=== PATIENT | female | born 1990 | race Caucasian/White ===

== ENCOUNTER → 2019-01-29 08:34 | Outpatient (CLI) | payer OTHER, SELFPAY ==
[2019-01-29 08:16] VITALS: BMI 30.8
[2019-01-29 10:58] LABS: Absolute Lymphocyte Count 2.04 X10^3/ul (0.83-4.51); Absolute Neutrophil Count 3.3 X10^3/uL (2.0-7.7); Basophil# 0.04 X10^3/uL; Basophil% 0.7 % (0-1); Eosinophil# 0.13 X10^3/uL; Eosinophils% 2.1 % (0-5); Hematocrit 41.6 % (37-47); Hemoglobin 14.3 g/dl (12.0-15.0); Lymphocyte # 2.04 X10^3/ul (4.0); Lymphocyte % 33.7 % (19-41); Mean Corp Hgb Conc 34.4 g/gl (32-36); Mean Corpuscular Hgb 29.4 pg (27.0-32.0); Mean Corpuscular Volume 85.6 fL (81-99); Mean Platelet Vol. 9.5 fl (6.2-12.0); Monocyte# 0.56 X10^3/uL; Monocyte% 9.2 % (0-10); Neutrophil # 3.28 X10^3/uL (2.7-7.7); Neutrophil % 54.1 % (47-70); Platelet Count 283 K/mm3 (150-450); RBC Distribution Width CV 12.1 % (11.6-14.6); Red Blood Count 4.86 M/mm3 (4.2-5.4); White Blood Count 6.1 K/mm3 (4.4-11.0)
[2019-01-29 10:59] LABS: POSITIVE COUNT NO; POSITIVE DIFFERENTIAL NO; POSITIVE MORPHOLOGY NO
[2019-01-29 11:09] LABS: AST(SGOT) 17 U/L (15-37); Alanine Aminotransfer ALT/SGPT 25 U/L (13-56); Albumin, Serum 3.7 g/dL (3.2-5.0); Alkaline Phosphatase 67 U/L (45-117); Anion Gap 6 (5-15); BUN 14 mg/dL (7-18); BUN/Creat Ratio 14.6 RATIO (10-20); Calcium,Total 8.7 mg/dL (8.5-10.1); Chloride 107 mmol/L (98-107); Creatinine, Serum 0.96 mg/dL (0.55-1.02); EST Glomerular Filtration Rate 74 mL/min (>60); Est Glom Filt Rate - Afr Amer 89 mL/min (>60); Globulin 3.6 g/dL (2.2-4.2); Glucose 88 mg/dL (74-106); Potassium 4.4 mmol/L (3.5-5.1); Protein, Total 7.3 g/dL (6.4-8.2); Sodium Level 137 mmol/L (136-145)
== END ==
PROVIDERS: Family Provider Internal Medicine; PCP Internal Medicine; Visit Provider Internal Medicine
DX: J45.909 Unspecified asthma, uncomplicated (principal); F41.9 Anxiety disorder, unspecified
CPT/HCPCS: 36415; 80053; 85025

== ENCOUNTER 2020-06-03 16:15 | Outpatient (CLI) | payer OTHER, SELFPAY ==
[2020-03-18 08:23] VITALS: BMI 30.8
[2020-06-03] VITALS (7 sets, daily range): BP systolic 135–147; BP diastolic 74–85; PULSE 70–83; TEMP 37.1; O2SAT 97; BMI 35.5
[2020-06-03 17:15] LABS: Hematocrit 37.9 % (37-47); Hemoglobin 12.9 g/dL (12.0-15.0); Mean Corpuscular Hgb 29.9 pg (27.0-32.0); Mean Corpuscular Volume 87.9 fL (81-99); Mean Platelet Vol. 11.3 fl (6.2-12.0); Platelet Count 208 K/mm3 (150-450); RBC Distribution Width CV 12.7 % (11.6-14.6); RBC Distribution Width SD 40.4 fl (35.1-43.9); Red Blood Count 4.31 M/mm3 (4.2-5.4); White Blood Count 11.8 K/mm3 (4.4-11.0)
[2020-06-03 17:19] LABS: International Normalized Ratio 0.9; Prothrombin Time (Protime)PT. 12.1 SECONDS (11.7-14.9)
[2020-06-03 17:20] LABS: Partial Thromboplast Time 27.6 Seconds (24.1-36.2)
[2020-06-03 17:30] LABS: AST(SGOT) 15 U/L (15-37); Alanine Aminotransfer ALT/SGPT 19 U/L (13-56); Creatinine, Serum 0.74 mg/dL (0.55-1.02); EST Glomerular Filtration Rate 99 mL/min (>60); Est Glom Filt Rate - Afr Amer 120 mL/min (>60); Estimated Creatinine Clearance 109.08 ml/min; Uric Acid 5.5 mg/dL (2.6-6.0)
[2020-06-03 17:36] LABS: Protein, Urine (Random) 11.2 mg/dL (<11.9); Protein:Creat Ratio 253 mg/g CRE (0-200)
--- NOTE | 2020-06-04 08:37 | OB.TRI.HP_ITS ---
- Problem List (1) 36 weeks gestation of Status: Acute (2) Elevated blood pressure affecting , antepartum Status: Acute History of Present Illness Date of Service: 06/03/20 Reason For Visit: R/O PRE E Date of Service: 06/03/20 Final TRACY: 06/25/20 Gestational age: 37 Weeks and 0 Days History of Present Illness: Presented to the office after having blood pressures in the 140s over 90s at home. She reports getting very anxious and has a history of anxiety. She said she thinks she is getting a dull headache now due to the anxiety. She denies vision changes, right upper quadrant pain, epigastric pain. No contractions, bleeding, leaking of fluid. Good movement. She reports she likely has u nderlying high blood pressure and she was monitoring her blood pressures with her primary care doctor before . In the office her first blood pressure was 160s over 90s. The rest of her blood pressures in the office were 120s over 80s. She had 2+ reflexes. Trace protein in her urine in the office. So she was sent over to labor and delivery for rule out preeclampsia. Allergies No Known Allergies Allergy (Unverified 12/20/19 09:27) - Pertinent Past Medical History Medical History: Past Medical History (Last Reviewed 12/20/19 @ 09:27 by Flori Montiel) Anxiety (Chronic) Frequent headaches (Chronic) GERD (gastroesophageal reflux disease) (Chronic) Environmental allergies (Chronic) Asthma (Chronic) Surgical History: Past Surgical History (Last Reviewed 12/20/19 @ 09:27 by Flori Montiel) S/P LASIK surgery of both eyes hx of leg surgery Laboratory Studies: Laboratory Tests 06/03/20 06/03/20 06/03/20 Range/Units 16:55 16:45 16:45 WBC (4.4-11.0) K/mm3 RBC (4.2-5.4) M/mm3 Hgb (12.0-15.0) g/dL Hct (37-47) % MCV (81-99) fL MCH (27.0-32.0) pg MCHC (32-36) g/dL RDW Std Deviation (35.1-43.9) fl RDW Coeff of Ayse (11.6-14.6) % Plt Count (150-450) K/mm3 MPV (6.2-12.0) fl PT 12.1 (11.7-14.9) SECONDS INR 0.9 APTT 27.6 (24.1-36.2) Seconds Creatinine 0.74 (0.55-1.02) mg/dL Estim Creat Clear Calc 109.08 ml/min Est GFR (MDRD) Af Amer 120 (>60) mL/min Est GFR (MDRD) Non-Af 99 (>60) mL/min Uric Acid 5.5 (2.6-6.0) mg/dL AST 15 (15-37) U/L ALT 19 (13-56) U/L U Random Total Protein 11.2 (<11.9) mg/dL Urine Creatinine 44.30 (NO RANGE EST.) mg/dL Protein/Creatinin Ratio 253 H (0-200) mg/g CRE 06/03/20 Range/Units 16:45 WBC 11.8 H (4.4-11.0) K/mm3 RBC 4.31 (4.2-5.4) M/mm3 Hgb 12.9 (12.0-15.0) g/dL Hct 37.9 (37-47) % MCV 87.9 (81-99) fL MCH 29.9 (27.0-32.0) pg MCHC 34.0 (32-36) g/dL RDW Std Deviation 40.4 (35.1-43.9) fl RDW Coeff of Ayse 12.7 (11.6-14.6) % Plt Count 208 (150-450) K/mm3 MPV 11.3 (6.2-12.0) fl PT (11.7-14.9) SECONDS INR APTT (24.1-36.2) Seconds Creatinine (0.55-1.02) mg/dL Estim Creat Clear Calc ml/min Est GFR (MDRD) Af Amer (>60) mL/min Est GFR (MDRD) Non-Af (>60) mL/min Uric Acid (2.6-6.0) mg/dL AST (15-37) U/L ALT (13-56) U/L U Random Total Protein (<11.9) mg/dL Urine Creatinine (NO RANGE EST.) mg/dL Protein/Creatinin Ratio (0-200) mg/g CRE Physical Exam Vitals: Vital Signs Temp Pulse BP Pulse Ox 98.8 F 70 140/76 H 97 06/03/20 16:32 06/03/20 17:49 06/03/20 17:49 06/03/20 16:32 NST - FHR Rate Baby A Baseline: 150 Variability:: Moderate Accelerations:: 15 x 15 Decelerations:: None NST Reactive:: Yes Uterine Activity:: No ctx's Impression/Plan Blood pressures normal to mild range Patient's headache has improved without Tylenol Preeclampsia labs are within normal limits Given that she likely has underlying chronic hypertension, okay for discharge home with follow-up in the office. She will be sent home with a 24-hour urine to complete and turn in tomorrow. She will have an appointment within 1 to 2 days in the office for a blood pressure check and nonstress test. Will likely plan for delivery at 38 weeks. Discussed plan of care with partner for second opinion
== END 2020-06-03 18:00 | disposition home or self-care (01) ==
LOC: WPOUT 16:28 → OBT 16:28
PROVIDERS: PCP Internal Medicine; Referring Provider Obstetrics & Gynecology; Visit Provider Obstetrics & Gynecology
DX: O10.919 Unspecified pre-existing hypertension complicating pregnancy, unspecified trimester (principal)
CPT/HCPCS: 36415; 59025; 59050; 82565; 82570; 84156; 84450; 84460; 84550; 85027; 85610; 85730; 99218; G0378

== ENCOUNTER → 2020-06-04 | Outpatient (CLI) | payer OTHER, SELFPAY ==
[2020-06-03 16:34] VITALS: BMI 35.5
[2020-06-04 19:19] LABS: 24 Hour Urine Protein 389.7 mg/24HR (<150 MG/24HR); 24HR. UA Prot. Total Volume 2975 mL; Urine Protein (24 Hour) 13.1 mg/dL (<11.9)
[2020-06-04 19:22] LABS: Creat.Clear Total Volume 2975 mL; Creatinine Clearance 160 ml/min (100-200); Creatinine Serum Creat 0.7 mg/dL (0.6-1.0); Creatinine Urine 57.2 mg/dL (NO RANGE EST.); EST Glomerular Filtration Rate 98 mL/min (>60); Est Glom Filt Rate - Afr Amer 119 mL/min (>60)
== END | disposition home or self-care (01) ==
LOC: LABSPEC 17:13
PROVIDERS: PCP Internal Medicine; Referring Provider Obstetrics & Gynecology; Visit Provider Obstetrics & Gynecology
DX: O10.919 Unspecified pre-existing hypertension complicating pregnancy, unspecified trimester (principal); Z3A.00 Weeks of gestation of pregnancy not specified
CPT/HCPCS: 82575; 84156

== ENCOUNTER 2020-06-05 17:29 | Inpatient (IN) | payer OTHER, SELFPAY ==
[2020-06-03 16:34] VITALS: BMI 35.5
[2020-06-05] VITALS (11 sets, daily range): BP systolic 117–156; BP diastolic 55–82; PULSE 63–76; RESP 16–18; TEMP 36.4–37.1; O2SAT 93–97; BMI 35.6
[2020-06-05] MEDS: Lactated Ringers 1,000 ML 999 ML IV (17:40)
[2020-06-05] MEDS: Acetaminophen 500 MG Tablet 1000 MG PO (17:56)
[2020-06-05 18:13] LABS: Protein, Urine (Random) 35.3 mg/dL (<11.9); Protein:Creat Ratio 405 mg/g CRE (0-200)
[2020-06-05 18:21] LABS: AST(SGOT) 19 U/L (15-37); Alanine Aminotransfer ALT/SGPT 21 U/L (13-56); Creatinine, Serum 0.82 mg/dL (0.55-1.02); EST Glomerular Filtration Rate 88 mL/min (>60); Est Glom Filt Rate - Afr Amer 106 mL/min (>60); Estimated Creatinine Clearance 98.44 ml/min; Uric Acid 5.3 mg/dL (2.6-6.0)
[2020-06-05 18:32] LABS: Absolute Neutrophil Count 9.2 X10^3/uL (2.0-7.7); Basophil# 0.06 X10^3/uL; Basophil% 0.5 % (0-1); Eosinophil# 0.04 X10^3/uL; Eosinophils% 0.3 % (0-5); Hematocrit 41.9 % (37-47); Hemoglobin 14.3 g/dL (12.0-15.0); Mean Corp Hgb Conc 34.1 g/dL (32-36); Mean Corpuscular Hgb 29.7 pg (27.0-32.0); Mean Corpuscular Volume 87.1 fL (81-99); Mean Platelet Vol. 11.2 fl (6.2-12.0); Monocyte# 1.09 X10^3/uL; Monocyte% 8.3 % (0-10); NRBC Flagged by Analyzer 0 % (0-5); Neutrophil # 9.17 X10^3/uL (2.7-7.7); Neutrophil % 69.8 % (47-70); Platelet Count 250 K/mm3 (150-450); RBC Distribution Width CV 12.9 % (11.6-14.6); RBC Distribution Width SD 40.3 fl (35.1-43.9); Red Blood Count 4.81 M/mm3 (4.2-5.4); White Blood Count 13.1 K/mm3 (4.4-11.0)
[2020-06-05 18:39] LABS: Partial Thromboplast Time 28.5 Seconds (24.1-36.2)
[2020-06-05] MEDS: Lactated Ringers 1,000 ML 150 ML IV (18:40)
[2020-06-05] MEDS: Sodium Citrate/Citric Acid 30 ML UDC PO (18:45)
[2020-06-05] MEDS: Cefazolin 2 GM in 0.9% Normal Saline 100 ML IV (18:48)
[2020-06-05 18:49] LABS: International Normalized Ratio 0.9; Prothrombin Time (Protime)PT. 11.9 SECONDS (11.7-14.9)
--- NOTE | 2020-06-05 18:49 | HP.PCM_ITS ---
History Date of Admission: 06/05/20 Final TRACY: 06/25/20 Gestational age: 37 Weeks and 2 Days History of this : This is a 29 year-old, G [], P [], at 37 weeks gestational age. Medical History: Medical History (Last Reviewed 12/20/19 @ 09:27 by Flori Montiel) Anxiety (Chronic) F41.9 Frequent headaches (Chronic) R51 GERD (gastroesophageal reflux disease) (Chronic) K21.9 Environmental allergies (Chronic) Z91.09 Asthma (Chronic) J45.909 Surgical History: Surgical History (Last Reviewed 12/20/19 @ 09:27 by Flori Montiel) S/P LASIK surgery of both eyes Z98.890 hx of leg surgery Allergies No Known Allergies Allergy (Unverified 12/20/19 09:27) Home Medications: Home Medications fexofenadine 180 mg tablet 180 mg PO DAILY 01/29/19 vitamin-ferrous fumarate 28 mg iron-folic acid 800 mcg tablet 1 tab PO DAILY 03/15/19 famotidine 20 mg tablet 20 mg PO DAILY #90 tab 12/20/19 Smoking Status: Never smoker Alcohol: None History Past Pregnancies: Past Pregnancies Delivery Date Name GA/ Weeks Outcome Route Wt Sex Labor Length Anesthesia Delivery Location Provider FOB Labs: See [facility] prenatals Physical Exam Vitals: Vital Signs Temp Pulse Resp BP Pulse Ox 98.8 F 76 16 156/80 H 97 06/05/20 18:09 06/05/20 18:09 06/05/20 18:09 06/05/20 18:09 06/05/20 18:09 General: Alert, Oriented x3 Abdomen: Soft, Non Tender, Non-Distended, Gravid Neurological: Cranial nerves II-XII grossly intact PERINATOLOGY PHYSICIAN: Normal external genitalia Estimated gestational size: Appropriate for gestational size Presentation: - - unstable lie Cervix Dilation (cm): 0 Station: -3 Effacement (%): 0 Assessment/Plan All Active Problems (Last Reviewed 12/20/19 @ 09:27 by Flori Montiel) 36 weeks gestation of (Acute) Elevated blood pressure affecting , antepartum (Acute) URI, acute (Acute) Asthma with acute exacerbation in adult (Acute) This is a 29 year-old, G1, P0, at 37&1 weeks gestational age. Preeclampsia - mild superimposed on possible chtn, proceed with delivery MOD - patient with unstable lie (US in office) & unfavorable cervix in the setting of mild preeclampsia. Discussed R/B/A of induction vs primary and patient wishes to proceed with .
[2020-06-05] MEDS: Oxytocin 30 units/NS 500 ml 30 UNITS/500 ML IV.SOLN 167 UNITS IV (20:05)
--- NOTE | 2020-06-05 20:46 | OP.PCM_ITS ---
Report of Operation Date of Procedure: 06/05/20 Surgery/Procedure Performed:: Primary low transverse section Description of Surgical Findings:: Normal maternal uterus and adnexa Delivery Classification: Scheduled Final TRACY: 06/25/20 Gestational age: 37 Weeks and 1 Days preventive medicine officer: Charmaine Joy Type of Anesthesia:: Spinal Date of Procedure: 06/05/20 Pre-Operative Diagnosis: (1) Mild preeclampsia (2) Unstable lie (3) Unfavorable cervix Post-Operative Diagnosis: Same Indications for : - - See above Description of Procedure: Patient taken to OR where spinal anesthesia was placed. She was prepped and draped in normal sterile fashion in a dorsal supine position with a leftward tilt. After ensuring adequacy of anesthesia the Pfannensteil skin incision was made and carried through to the underlying fascia with a bovie. The fascia was incised in the midline and carried laterally with the Llanes scissors. The rectus muscles were in the midline and the peritoneum was entered bluntly. The bladder flap was dissected down carefully with the Metzenbaum scissors and blunt dissection. The uterus was incised in a transverse fashion and then incision extended with cephalocaudad traction. The fetus was gently rotated to vertex (head was floating oblique) and the head was brought to the incision in the flexed position. With good fundal pressure the head easily delivered. Gentle guidance placed on head to allow delivery of anterior & posterior shoulders. No excess traction placed on head. The body delivered easily. The 3VC cord was clamped and cut after delay and the handed off to the waiting RN. The placenta was delivered with gentle traction and fundal massage and the uterus was exteriorized and cleared of all clots and debris. The uterine incision was closed with 1 vicryl suture in a running locked fashion. A second imbricating layer of monocryl was placed. The uterus was returned to the peritoneal cavity. The pelvis was irrigated & then cleared of all clots and debris. The uterine incision was reexamined and found to be hemostatic. Some erich was placed over the uterine incision due to the denuded areas. The parietal peritoneum was reapproximated with running 3-0 vicryl suture. The fascia was closed with looped PDS suture in a running standard fashion. The subcutaneous tissue was examined & any bleeding bovie cauterized. The subcutaneous tissue was reapproximated with plain gut suture. The skin was closed in a subcuticular fashion. Amniotic Membrane Rupture Type: Artificial Amniotic Fluid Description: Clear Placenta Disposition: [facility] Drain: [place] to straight drain Cord Entanglement: None Cord Vessel Description: 3 Vessels Esitmated Blood Loss (ml): 800ml Gender: Male (1 minute): 8 (5 minute): 9 Delayed cord clamping: Yes Antibiotic Given: Ancef 2 grams IV x1 Complications: None
[2020-06-05] MEDS: Lactated Ringers 1,000 ML 100 ML IV (23:15)
[2020-06-06] VITALS (8 sets, daily range): BP systolic 112–135; BP diastolic 59–76; PULSE 63–88; RESP 16–18; TEMP 35.9–37.3; O2SAT 95–98
[2020-06-06] MEDS: Acetaminophen 500 MG Tablet 1000 MG PO ×4 (00:27→18:22)
[2020-06-06] MEDS: Ketorolac 30 MG/ML Syringe IV ×4 (00:31→18:22)
[2020-06-06] MEDS: 0.9% Saline Lock 10 ML Syringe IV ×3 (06:25→18:23)
[2020-06-06 06:51] LABS: Hematocrit 33.9 % (37-47); Hemoglobin 11.7 g/dL (12.0-15.0); Mean Corp Hgb Conc 34.5 g/dL (32-36); Mean Corpuscular Hgb 30.5 pg (27.0-32.0); Mean Corpuscular Volume 88.3 fL (81-99); Mean Platelet Vol. 11.1 fl (6.2-12.0); Platelet Count 168 K/mm3 (150-450); RBC Distribution Width SD 40.5 fl (35.1-43.9); Red Blood Count 3.84 M/mm3 (4.2-5.4); White Blood Count 13.1 K/mm3 (4.4-11.0)
[2020-06-06] MEDS: Senna/Docusate Sodium 1 Tablet PO (10:20)
[2020-06-06] MEDS: Enoxaparin 40 MG/0.4 ML Syringe SC (10:20)
--- NOTE | 2020-06-06 11:29 | PN.OBGYN_ITS ---
Subjective: Pain controlled - Physical Exam Vitals/I&O's: Vital Signs Temp Pulse Resp BP Pulse Ox 97.7 F L 64 18 128/65 H 97 06/06/20 08:00 06/06/20 08:00 06/06/20 08:00 06/06/20 08:00 06/06/20 08:00 Oxygen Delivery Method Room Air Weight: 228 lb Body Mass Index (BMI) 35.6 Intake and Output for Last 24 Hours 06/04/20 06/05/20 06/06/20 23:59 23:59 23:59 Intake Total 1727.5 / 1727.5 2816.67 / 2816.67 Output Total 175 / 175 775 / 775 Balance 1552.5 / 1552.5 2041.67 / 2041.67 General: Alert, Oriented x3 Abdomen: Soft, Non Tender, Non-Distended - ff mid & below umb; incision - bandage with scant dried blood, otherwise c/d/i Extremities: No Calf Tenderness Laboratory Results 06/05/20 17:30: U Random Total Protein 35.3 H, Urine Creatinine 87.10, Protein/Creatinin Ratio 405 H 06/05/20 17:40: WBC 13.1 H, RBC 4.81, Hgb 14.3, Hct 41.9, MCV 87.1, MCH 29.7, MCHC 34.1, RDW Std Deviation 40.3, RDW Coeff of Ayse 12.9, Plt Count 250, MPV 11.2, Immature Gran % (Auto) 2.100 H, Neut % (Auto) 69.8, Lymph % (Auto) 19.0, [place] % (Auto) 8.3, Eos % (Auto) 0.3, Baso % (Auto) 0.5, Absolute Neuts (auto) 9.2 H, Absolute Lymphs (auto) 2.50, Nucleated RBC % 0 06/05/20 17:40: Blood Type AB POSITIVE, Antibody Screen NEGATIVE 06/05/20 17:40: PT 11.9, INR 0.9, APTT 28.5 06/05/20 17:40: Creatinine 0.82, Estim Creat Clear Calc 98.44, Est GFR (MDRD) Af Amer 106, Est GFR (MDRD) Non-Af 88, Uric Acid 5.3, AST 19, ALT 21 06/06/20 06:30: WBC 13.1 H, RBC 3.84 L, Hgb 11.7 L, Hct 33.9 L, MCV 88.3, MCH 30.5, MCHC 34.5, RDW Std Deviation 40.5, RDW Coeff of Ayse 13.0, Plt Count 168, MPV 11.1 Current Medications Acetaminophen (Tylenol) 1,000 mg PO Q6H [facility] Last Admin: 06/06/20 06:24 Dose: 1,000 mg Documented by: Bisacodyl (Dulcolax) 10 mg RECTAL UD PRN PRN Reason: If no BM Enoxaparin Sodium (Lovenox) 40 mg SC DAILY [facility] Last Admin: 06/06/20 10:20 Dose: 40 mg Documented by: Hydrocortisone (Hytone) 1 applic TOPICAL TID PRN PRN; Protocol PRN Reason: Discomfort Lactated Ringer's () 1,000 mls @ 100 mls/hr IV .Q10H [facility] Last Admin: 06/06/20 06:49 Dose: Not Given Documented by: Naloxone HCl 4 mg/ Dextrose 504 mls @ 0 mls/hr IV .Q0M PRN; Protocol PRN Reason: To maintain Resp. rate >10 Ibuprofen (Motrin) 600 mg PO Q6 [facility] Ketorolac Tromethamine (Toradol (Bkc)) 30 mg IV Q6H [facility] Stop: 06/06/20 18:01 Last Admin: 06/06/20 06:25 Dose: 30 mg Documented by: Methylergonovine Maleate (Methergine) 0.2 mg IM X1 PRN PRN Reason: Uterine Atony Naloxone HCl (Narcan) 0.02 mg IV Q1M PRN PRN Reason: RR <10 and pt unresponsive Ondansetron HCl (Zofran) 4 mg IV Q4H PRN PRN PRN Reason: Nausea Oxycodone HCl (Oxyir) 5 - 10 mg PO Q4H PRN PRN PRN Reason: Pain Score 4-10/10 Prochlorperazine Edisylate (Compazine Iv) 10 mg IV Q6H PRN PRN PRN Reason: NAUSEA Senna/Docusate Sodium (Senokot-S, Zohra-Colace) 1 - 2 tablet PO DAILY [facility] Last Admin: 06/06/20 10:20 Dose: 1 tablet Documented by: Simethicone (Mylicon) 80 mg PO PCHS PRN PRN Reason: Indigestion/stomach pain Sodium Chloride () 5 - 15 ml IV UD PRN PRN Reason: SALINE FLUSH Last Admin: 06/06/20 06:25 Dose: 10 ml Documented by: Medical Necessity - Tobacco Use Smoking Status: Never smoker Assessment/Plan All Active Problems (Last Reviewed 12/20/19 @ 09:27 by Flori Montiel) 36 weeks gestation of (Acute) Elevated blood pressure affecting , antepartum (Acute) URI, acute (Acute) Asthma with acute exacerbation in adult (Acute) POD#1 Preeclampsia - BP's normal since delivery, will monitor Heme - HDS, cbc reviewed GI/ - no issues Routine care
[2020-06-07] MEDS: Ibuprofen 600 MG Tablet PO ×4 (00:14→18:06)
[2020-06-07] MEDS: Acetaminophen 500 MG Tablet 1000 MG PO ×4 (00:29→18:23)
[2020-06-07 02:55] VITALS: BP 135/62; PULSE 68; RESP 17; TEMP 35.9
--- NOTE | 2020-06-07 07:12 | PN.OBGYN_ITS ---
Subjective: Pain controlled - Physical Exam Vitals/I&O's: Vital Signs Temp Pulse Resp BP Pulse Ox 96.7 F L 68 17 135/62 H 97 06/07/20 02:55 06/07/20 02:55 06/07/20 02:55 06/07/20 02:55 06/06/20 19:50 Oxygen Delivery Method Room Air Weight: 228 lb Body Mass Index (BMI) 35.6 Intake and Output for Last 24 Hours 06/05/20 06/06/20 06/07/20 23:59 23:59 23:59 Intake Total 1727.5 / 1727.5 2816.67 / 2816.67 Output Total 175 / 175 1775 / 1775 Balance 1552.5 / 1552.5 1041.67 / 1041.67 General: Alert, Oriented x3 Abdomen: Soft, Non Tender, Non-Distended - ff mid & below umb; incision - bandage c/d/i other than stable scant dried blood Extremities: No Calf Tenderness Neurological: Cranial nerves II-XII grossly intact Current Medications Acetaminophen (Tylenol) 1,000 mg PO Q6H [facility] Last Admin: 06/07/20 06:29 Dose: 1,000 mg Documented by: Bisacodyl (Dulcolax) 10 mg RECTAL UD PRN PRN Reason: If no BM Enoxaparin Sodium (Lovenox) 40 mg SC DAILY [facility] Last Admin: 06/06/20 10:20 Dose: 40 mg Documented by: Hydrocortisone (Hytone) 1 applic TOPICAL TID PRN PRN; Protocol PRN Reason: Discomfort Naloxone HCl 4 mg/ Dextrose 504 mls @ 0 mls/hr IV .Q0M PRN; Protocol PRN Reason: To maintain Resp. rate >10 Ibuprofen (Motrin) 600 mg PO Q6 [facility] Last Admin: 06/07/20 06:28 Dose: 600 mg Documented by: Methylergonovine Maleate (Methergine) 0.2 mg IM X1 PRN PRN Reason: Uterine Atony Naloxone HCl (Narcan) 0.02 mg IV Q1M PRN PRN Reason: RR <10 and pt unresponsive Ondansetron HCl (Zofran) 4 mg IV Q4H PRN PRN PRN Reason: Nausea Oxycodone HCl (Oxyir) 5 - 10 mg PO Q4H PRN PRN PRN Reason: Pain Score 4-10/10 Prochlorperazine Edisylate (Compazine Iv) 10 mg IV Q6H PRN PRN PRN Reason: NAUSEA Senna/Docusate Sodium (Senokot-S, Zohra-Colace) 1 - 2 tablet PO DAILY [facility] Last Admin: 06/06/20 10:20 Dose: 1 tablet Documented by: Simethicone (Mylicon) 80 mg PO PCHS PRN PRN Reason: Indigestion/stomach pain Last Admin: 06/06/20 13:30 Dose: 80 mg Documented by: Sodium Chloride () 5 - 15 ml IV UD PRN PRN Reason: SALINE FLUSH Last Admin: 06/06/20 18:23 Dose: 10 ml Documented by: Medical Necessity - Tobacco Use Smoking Status: Never smoker Assessment/Plan All Active Problems (Last Reviewed 12/20/19 @ 09:27 by Flori Montiel) 36 weeks gestation of (Acute) Elevated blood pressure affecting , antepartum (Acute) URI, acute (Acute) Asthma with acute exacerbation in adult (Acute) POD#2 Preeclampsia - BP's remain normal post delivery - working with Routine care & plan for discharge tomorrow morning
[2020-06-07 07:57] VITALS: BP 127/77; PULSE 72; RESP 18; TEMP 36.8
[2020-06-07] MEDS: Senna/Docusate Sodium 1 Tablet PO (10:46)
[2020-06-07] MEDS: Enoxaparin 40 MG/0.4 ML Syringe SC (10:46)
[2020-06-07 14:00] VITALS: BP 136/77; PULSE 77; RESP 18; TEMP 36.7
[2020-06-07 21:05] VITALS: BP 145/78; PULSE 76; RESP 18; TEMP 36.6
[2020-06-07 21:15] VITALS: BP 137/85
[2020-06-08] MEDS: Ibuprofen 600 MG Tablet PO ×2 (00:28→06:34)
[2020-06-08] MEDS: Acetaminophen 500 MG Tablet 1000 MG PO ×2 (00:30→06:33)
[2020-06-08 01:35] VITALS: BP 129/75; PULSE 70; RESP 18; TEMP 36.1
[2020-06-08 08:00] VITALS: BP 132/80; PULSE 79; RESP 16; TEMP 36.5
--- NOTE | 2020-06-08 08:18 | PCM.PN.OB ---
Subjective: Patient doing well. Ambulating voiding without difficulty. Has had 2 bowel movements. Tolerating regular diet without nausea or vomiting. Breast-feeding without any complaints. Lochia normal. She denies headache, vision changes, right upper quadrant pain, lightheadedness, dizziness, chest pain, shortness of breath, leg pain. Desires to go home. - Physical Exam Vitals/I&O's: Vital Signs Temp Pulse Resp BP Pulse Ox 97 F L 70 18 129/75 H 97 06/08/20 01:35 06/08/20 01:35 06/08/20 01:35 06/08/20 01:35 06/06/20 19:50 Oxygen Delivery Method Room Air Weight: 228 lb Body Mass Index (BMI) 35.6 Intake and Output for Last 24 Hours 06/06/20 06/07/20 06/08/20 23:59 23:59 23:59 Intake Total 2816.67 / 2816.67 Output Total 1775 / 1775 Balance 1041.67 / 1041.67 General: Alert, No apparent distress HEENT: Atraumatic Abdomen: Soft, Non-Distended, - - ATTP Extremities: No Calf Tenderness, Edema - trace Skin: No rashes Neurological: Neuro grossly intact Psych/Mental Status: Normal Affect, Appropriate Current Medications Acetaminophen (Tylenol) 1,000 mg PO Q6H [facility] Last Admin: 06/08/20 06:33 Dose: 1,000 mg Documented by: Bisacodyl (Dulcolax) 10 mg RECTAL UD PRN PRN Reason: If no BM Enoxaparin Sodium (Lovenox) 40 mg SC DAILY [facility] Last Admin: 06/07/20 10:46 Dose: 40 mg Documented by: Hydrocortisone (Hytone) 1 applic TOPICAL TID PRN PRN; Protocol PRN Reason: Discomfort Naloxone HCl 4 mg/ Dextrose 504 mls @ 0 mls/hr IV .Q0M PRN; Protocol PRN Reason: To maintain Resp. rate >10 Ibuprofen (Motrin) 600 mg PO Q6 [facility] Last Admin: 06/08/20 06:34 Dose: 600 mg Documented by: Methylergonovine Maleate (Methergine) 0.2 mg IM X1 PRN PRN Reason: Uterine Atony Naloxone HCl (Narcan) 0.02 mg IV Q1M PRN PRN Reason: RR <10 and pt unresponsive Ondansetron HCl (Zofran) 4 mg IV Q4H PRN PRN PRN Reason: Nausea Oxycodone HCl (Oxyir) 5 - 10 mg PO Q4H PRN PRN PRN Reason: Pain Score 4-10/10 Prochlorperazine Edisylate (Compazine Iv) 10 mg IV Q6H PRN PRN PRN Reason: NAUSEA Senna/Docusate Sodium (Senokot-S, Zohra-Colace) 1 - 2 tablet PO DAILY [facility] Last Admin: 06/07/20 10:46 Dose: 2 tablet Documented by: Simethicone (Mylicon) 80 mg PO PCHS PRN PRN Reason: Indigestion/stomach pain Last Admin: 06/06/20 13:30 Dose: 80 mg Documented by: Sodium Chloride () 5 - 15 ml IV UD PRN PRN Reason: SALINE FLUSH Last Admin: 06/06/20 18:23 Dose: 10 ml Documented by: Medical Necessity - Tobacco Use Smoking Status: Never smoker Assessment/Plan All Active Problems (Last Reviewed 12/20/19 @ 09:27 by Flori Montiel) 36 weeks gestation of (Acute) Elevated blood pressure affecting , antepartum (Acute) URI, acute (Acute) Asthma with acute exacerbation in adult (Acute) Is postop day 3 from a section for likely chronic hypertension with superimposed preeclampsia without severe features - No pre-e symptoms. Majority of BP's WNL, occasional mild. Labs reviewed. Discussed with pt to check BP daily at home and reviewed reasons to call - Pain controlled - - Dispo: Desires to go home today. Reviewed discharge instructions. Patient does not want Percocet as her pain has been controlled with Tylenol and Motrin. Instructed her to return this week for BP and incision check
--- NOTE | 2020-06-08 08:24 | DCINST_ITS ---
Discharge Diet: No Restrictions Discharge Activity: May Not Drive - Until you feel you can slam on a brake or turn a steering wheel sharply, May Shower May resume sexual activity in: 6 weeks Ice area for (Minutes): 15 Weight Bearing Status: Weight bearing as tolerated Lifting Restrictions: Do not lift anything heavier than baby for 4 weeks Call your doctor if your incision/area has: Sudden Increased Bleeding, Increased Pain/ Swelling, Increased Redness, Foul Smelling Discharge, Swelling at the incision site Call your doctor if you observe: Fever of 101 or Higher, Inability to urinate, Inability to have a bowel movement, Using more than one pad per hour, Shortness of breath, Dizziness, Swelling in the ankles, Chest pain, Increased palpitations (irregular heartbeat), Calf discomfort, Uncontrolled pain, - - Headache that will not resolve with Tylenol, visual changes, pain in right upper abdomen Suture Line Care: Avoid Pulling/Pushing, Avoid Pinching/Bending Remove Dressing in (days):: 1 - remove tomorrow in shower Cleanse incision/area with: Soap & Water Additional Instructions: If you experience any of the following, contact your healthcare provider. * Bleeding that soaks a pad every hour for 2 hours * Fever 100.4 or higher * Unrelieved incision or abdominal pain * Swelling, redness, discharge or bleeding from your incision or episiotomy site * Your incision begins to separate * Problems urinating (including inability to urinate or burning while urinating). * Visual changes * Severe headache * Flu-like symptoms * Pain or redness in one of both of your breasts * Pain, warmth, tenderness or swelling in your legs, especially the calf area * Frequent nausea and vomiting * Symptoms of depression or anxiety If you experience any of the following, call 911 or go to the nearest Emergency Room. * Chest pain * Problems breathing * Seizure activity * Partial or complete paralysis of a body part, slurred speech, weakness or drooping of the face, or a sudden inability to walk or hold your balance Allergies/Adverse Reactions: Allergies No Known Allergies Allergy (Unverified 12/20/19 09:27) Medications to take at Discharge fexofenadine 180 mg tablet 180 mg PO DAILY 01/29/19 vitamin-ferrous fumarate 28 mg iron-folic acid 800 mcg tablet 1 tab PO DAILY 03/15/19 Acetaminophen [Tylenol] 1,000 mg PO Q6H tab 06/08/20 Docusate Sodium [Colace] 100 mg PO BID PRN PRN #60 cap 06/08/20 Ibuprofen [Motrin] 800 mg PO TID PRN PRN #60 tab 06/08/20 The following prescriptions were given: Docusate Sodium [Colace] 100 mg PO BID PRN PRN #60 cap PRN Reason: Constipation Transmission Status: Pending to [id number] Ibuprofen [Motrin] 800 mg PO TID PRN PRN #60 tab PRN Reason: Pain Score 6-08/08 Transmission Status: Pending to [id number] Follow-Up: Call to make an appointment with your doctor for an incision check in 1-2 weeks. You will also need a 6 week post- follow up appointment. Test results from this visit will be discussed in further detail at your follow- up appointment, if applicable. Please Follow Up With: Serge Lundberg MD When: This week for a blood pressure and incision check. Then again in 6 weeks Primary Care Physician: Abby Majano MD [Primary Care Provider] -
--- NOTE | 2020-06-12 12:27 | PCM.DC.SUM ---
Discharge Date and Diagnosis Date of Admission: 06/05/20 Date of Discharge: 06/08/20 - Secondary Discharge Diagnosis Chronic Problems: Chronic Problems (Last Reviewed 12/20/19 @ 09:27 by Flori Montiel) Hypertension (Chronic) Anxiety (Chronic) Frequent headaches (Chronic) GERD (gastroesophageal reflux disease) (Chronic) Environmental allergies (Chronic) Asthma (Chronic) Hospital Course and Treatment Operations: - - primary section Summary of Care Provided: The patient is a 29 year old F who was admitted on 06/05/2020 at 37 wk gestation with likely cHTN and superimposed preeclampsia without severe features. Noted to have an unstable lie and an unfavorable cervix, therefore a primary section was recommended. See operative report for details. Posoperatively her pain was controlled, tolerating a regular diet, ambulating and voiding without difficult, she had no preeclampsia symptoms, and blood pressures were controlled. She was discharged home in good condition to have follow up in the office for a blood pressure check. - Physical Exam Vitals/I&O's: Vital Signs Temp Pulse Resp BP Pulse Ox 97.7 F L 79 16 132/80 H 97 06/08/20 08:00 06/08/20 08:00 06/08/20 08:00 06/08/20 08:00 06/06/20 19:50 Oxygen Delivery Method Room Air Weight: 228 lb Body Mass Index (BMI) 35.6 Discharge Diet: No Restrictions Discharge Activity: May Not Drive - Until you feel you can slam on a brake or turn a steering wheel sharply, May Shower May resume sexual activity in: 6 weeks Ice area for (Minutes): 15 Weight Bearing Status: Weight bearing as tolerated Call your doctor if your incision/area has: Sudden Increased Bleeding, Increased Pain/ Swelling, Increased Redness, Foul Smelling Discharge, Swelling at the incision site Call your doctor if you observe: Fever of 101 or Higher, Inability to urinate, Inability to have a bowel movement, Using more than one pad per hour, Shortness of breath, Dizziness, Swelling in the ankles, Chest pain, Increased palpitations (irregular heartbeat), Calf discomfort, Uncontrolled pain, - - Headache that will not resolve with Tylenol, visual changes, pain in right upper abdomen Suture Line Care: Avoid Pulling/Pushing, Avoid Pinching/Bending Remove Dressing in (days):: 1 - remove tomorrow in shower Cleanse incision/area with: Soap & Water Home Medications: Medications to take at Discharge fexofenadine 180 mg tablet 180 mg PO DAILY 01/29/19 vitamin-ferrous fumarate 28 mg iron-folic acid 800 mcg tablet 1 tab PO DAILY 03/15/19 Acetaminophen [Tylenol] 1,000 mg PO Q6H tab 06/08/20 Docusate Sodium [Colace] 100 mg PO BID PRN PRN #60 cap 06/08/20 Ibuprofen [Motrin] 800 mg PO TID PRN PRN #60 tab 06/08/20 Following Prescriptions Were Given to Patient: Docusate Sodium [Colace] 100 mg PO BID PRN PRN #60 cap PRN Reason: Constipation Transmission Status: Received by [id number] Ibuprofen [Motrin] 800 mg PO TID PRN PRN #60 tab PRN Reason: Pain Score 6-10 Transmission Status: Received by [id number] Primary Care Physician: Abby Majano MD [Primary Care Provider] - Please Follow Up With: Serge Lundberg MD When: This week for a blood pressure and incision check. Then again in 6 weeks Medical Necessity - Tobacco Use Smoking Status: Never smoker Meaningful Use Info Meaningful Use Diagnoses (Choose all that apply): None applicable
== END 2020-06-08 11:15 | disposition home or self-care (01) | DRG 788 ==
PROVIDERS: Admitting Provider Obstetrics & Gynecology; PCP Internal Medicine; Visit Provider Obstetrics & Gynecology
DX: O11.4 Pre-existing hypertension with pre-eclampsia, complicating childbirth (principal); O32.0XX0 Maternal care for unstable lie, not applicable or unspecified; O60.14X0 Preterm labor third trimester with preterm delivery third trimester, not applicable or unspecified; O10.92 Unspecified pre-existing hypertension complicating childbirth; Z3A.37 37 weeks gestation of pregnancy; Z37.0 Single live birth
CPT/HCPCS: 82565; 82570; 84156; 84450; 84460; 84550; 85025; 85027; 85610; 85730; 86850; 86900; 86901; 99218; J7120; A4216; G0378; J2405

== ENCOUNTER → 2020-07-31 | Outpatient (CLI) | payer OTHER, SELFPAY ==
[2020-07-31 10:23] VITALS: BMI 35.6
[2020-07-31 12:41] LABS: ALB/GLOB Ratio 1.1 RATIO (0.9-2.4); AST(SGOT) 15 U/L (15-37); Alanine Aminotransfer ALT/SGPT 32 U/L (13-56); Albumin, Serum 3.9 g/dL (3.2-5.0); Alkaline Phosphatase 105 U/L (45-117); Anion Gap 2 (5-15); BUN 21 mg/dL (7-18); Calcium,Total 9.1 mg/dL (8.5-10.1); Chloride 108 mmol/L (98-107); Creatinine, Serum 0.91 mg/dL (0.55-1.02); EST Glomerular Filtration Rate 77 mL/min (>60); Est Glom Filt Rate - Afr Amer 93 mL/min (>60); Globulin 3.5 g/dL (2.2-4.2); Glucose 87 mg/dL (74-106); Potassium 4.3 mmol/L (3.5-5.1); Protein, Total 7.4 g/dL (6.4-8.2); Sodium Level 139 mmol/L (136-145)
== END | disposition home or self-care (01) ==
LOC: BIMLAB 10:37
PROVIDERS: PCP Internal Medicine; Referring Provider Internal Medicine; Visit Provider Internal Medicine
DX: I10 Essential (primary) hypertension (principal)
CPT/HCPCS: 36415; 80053

== ENCOUNTER → 2021-06-04 08:19 | Outpatient (CLI) | payer OTHER, SELFPAY ==
[2021-06-04 08:11] VITALS: BMI 29.2
[2021-06-04 11:57] LABS: Absolute Lymphocyte Count 1.76 X10^3/uL (0.83-4.51); Absolute Neutrophil Count 3.3 X10^3/uL (2.0-7.7); Basophil# 0.06 X10^3/uL; Basophil% 1.1 % (0-1); Eosinophil# 0.09 X10^3/uL; Eosinophils% 1.6 % (0-5); Hematocrit 41.1 % (37-47); Hemoglobin 13.7 g/dL (12.0-15.0); Lymphocyte # 1.76 X10^3/ul (0.83-4.51); Lymphocyte % 30.9 % (19-41); Mean Corp Hgb Conc 33.3 g/dL (32-36); Mean Corpuscular Hgb 28.7 pg (27.0-32.0); Mean Platelet Vol. 9.5 fl (6.2-12.0); Monocyte# 0.45 X10^3/uL; Monocyte% 7.9 % (0-10); NRBC Flagged by Analyzer 0 % (0-5); Neutrophil # 3.26 X10^3/uL (2.7-7.7); Neutrophil % 57.1 % (47-70); Platelet Count 307 K/mm3 (150-450); RBC Distribution Width CV 11.8 % (11.6-14.6); Red Blood Count 4.78 M/mm3 (4.2-5.4); White Blood Count 5.7 K/mm3 (4.4-11.0)
[2021-06-04 12:23] LABS: ALB/GLOB Ratio 0.9 RATIO (0.9-2.4); AST(SGOT) 15 U/L (15-37); Alanine Aminotransfer ALT/SGPT 27 U/L (13-56); Albumin, Serum 3.6 g/dL (3.2-5.0); Alkaline Phosphatase 71 U/L (45-117); Anion Gap 6 (5-15); BUN 18 mg/dL (7-18); BUN/Creat Ratio 21.1 RATIO (10-20); Calcium,Total 9.2 mg/dL (8.5-10.1); Chloride 108 mmol/L (98-107); Cholesterol 184 mg/dL (200); Creatinine, Serum 0.86 mg/dL (0.55-1.02); EST Glomerular Filtration Rate 83 mL/min (>60); Est Glom Filt Rate - Afr Amer 100 mL/min (>60); Globulin 3.8 g/dL (2.2-4.2); Glucose 88 mg/dL (74-106); High Density Lipoprotein 59 mg/dL; Potassium 4.4 mmol/L (3.5-5.1); Protein, Total 7.4 g/dL (6.4-8.2); Sodium Level 140 mmol/L (136-145); Triglycerides 136 mg/dL; Very Low Density Lipoprotein 27 mg/dL (5-40)
== END ==
PROVIDERS: PCP Internal Medicine; Referring Provider Internal Medicine; Visit Provider Internal Medicine
DX: I10 Essential (primary) hypertension (principal)
CPT/HCPCS: 36415; 80053; 80061; 85025

== ENCOUNTER → 2022-04-18 | Outpatient (CLI) | payer OTHER, SELFPAY ==
[2022-04-18 17:04] LABS: Absolute Lymphocyte Count 2.01 X10^3/uL (0.83-4.51); Absolute Neutrophil Count 3.3 X10^3/uL (2.0-7.7); Basophil# 0.07 X10^3/uL; Basophil% 1.1 % (0-1); Eosinophil# 0.12 X10^3/uL; Eosinophils% 1.9 % (0-5); Hematocrit 40.6 % (37-47); Lymphocyte # 2.01 X10^3/ul (0.83-4.51); Lymphocyte % 32.5 % (19-41); Mean Corp Hgb Conc 34.5 g/dL (32-36); Mean Corpuscular Hgb 29.3 pg (27.0-32.0); Mean Corpuscular Volume 84.9 fL (81-99); Mean Platelet Vol. 9.5 fl (6.2-12.0); Monocyte# 0.61 X10^3/uL; Monocyte% 9.9 % (0-10); NRBC Flagged by Analyzer 0 % (0-5); Neutrophil # 3.34 X10^3/uL (2.7-7.7); Neutrophil % 54.1 % (47-70); Platelet Count 279 K/mm3 (150-450); RBC Distribution Width CV 11.6 % (11.6-14.6); RBC Distribution Width SD 35.7 fl (35.1-43.9); Red Blood Count 4.78 M/mm3 (4.2-5.4); White Blood Count 6.2 K/mm3 (4.4-11.0)
[2022-04-18 17:32] LABS: AST(SGOT) 14 U/L (15-37); Alanine Aminotransfer ALT/SGPT 39 U/L (13-56); Albumin, Serum 3.6 g/dL (3.2-5.0); Alkaline Phosphatase 77 U/L (45-117); Anion Gap 6 (5-15); BUN 13 mg/dL (7-18); BUN/Creat Ratio 16.1 RATIO (10-20); Calcium,Total 8.8 mg/dL (8.5-10.1); Chloride 106 mmol/L (98-107); Cholesterol 178 mg/dL (200); Creatinine, Serum 0.81 mg/dL (0.55-1.02); EST Glomerular Filtration Rate 88 mL/min (>60); Est Glom Filt Rate - Afr Amer 106 mL/min (>60); Globulin 3.6 g/dL (2.2-4.2); Glucose 102 mg/dL (74-106); High Density Lipoprotein 51 mg/dL; Potassium 3.6 mmol/L (3.5-5.1); Protein, Total 7.2 g/dL (6.4-8.2); Sodium Level 138 mmol/L (136-145); Triglycerides 220 mg/dL; Very Low Density Lipoprotein 44 mg/dL (5-40)
== END | disposition home or self-care (01) ==
LOC: BIMLAB 15:21
PROVIDERS: PCP Internal Medicine; Referring Provider Internal Medicine; Visit Provider Internal Medicine
DX: I10 Essential (primary) hypertension (principal)
CPT/HCPCS: 36415; 80053; 80061; 85025

== ENCOUNTER → 2022-06-15 | Outpatient (CLI) | payer OTHER, SELFPAY | END | disposition home or self-care (01) | LOC: BIMLAB 10:05 | PROVIDERS: Physician Assistant; PCP Internal Medicine; Visit Provider Internal Medicine | DX: R52 Pain, unspecified (principal); Z20.822 Contact with and (suspected) exposure to COVID-19 | CPT/HCPCS: 87635; U0003; U0005 ==

== ENCOUNTER 2023-02-08 09:30 | Inpatient (IN) | payer BC, SELFPAY ==
[2023-02-08] VITALS (21 sets, daily range): BP systolic 82–146; BP diastolic 55–86; PULSE 64–88; RESP 15–18; TEMP 35.8–36.6; O2SAT 94–100; BMI 36.8
[2023-02-08] MEDS: Lactated Ringers 1,000 ML 999 ML IV (10:00)
[2023-02-08 10:20] LABS: Absolute Neutrophil Count 6.7 X10^3/uL (2.0-7.7); Basophil# 0.05 X10^3/uL; Basophil% 0.5 % (0-1); Eosinophil# 0.06 X10^3/uL; Eosinophils% 0.6 % (0-5); Hematocrit 37.5 % (37-47); Hemoglobin 12.4 g/dL (12.0-15.0); Lymphocyte % 21.4 % (19-41); Mean Corp Hgb Conc 33.1 g/dL (32-36); Mean Corpuscular Volume 84.7 fL (81-99); Mean Platelet Vol. 10.1 fl (6.2-12.0); Monocyte# 0.76 X10^3/uL; Monocyte% 7.7 % (0-10); NRBC Flagged by Analyzer 0 % (0-5); Neutrophil % 68.4 % (47-70); Platelet Count 258 K/mm3 (150-450); RBC Distribution Width CV 13.2 % (11.6-14.6); RBC Distribution Width SD 40.3 fl (35.1-43.9); Red Blood Count 4.43 M/mm3 (4.2-5.4); White Blood Count 9.8 K/mm3 (4.4-11.0)
[2023-02-08] MEDS: Lactated Ringers 1,000 ML 150 ML IV (11:00)
[2023-02-08 11:23] LABS: Syphilis Antibodies Non-reactive
[2023-02-08] MEDS: Acetaminophen 500 MG Tablet 1000 MG PO ×2 (11:51→18:13)
[2023-02-08] MEDS: Sodium Citrate/Citric Acid 30 ML UDC PO (11:51)
[2023-02-08] MEDS: Cefazolin 2 GM in 0.9% Normal Saline 100 ML IV (12:08)
[2023-02-08] MEDS: Methylergonovine 0.2 MG/ML Ampul IM (12:35)
--- NOTE | 2023-02-08 13:01 | OP.PCM_ITS ---
Assessment & Plan (1) 39 weeks gestation of : (2) Previous delivery affecting , delivered: (3) Maternal obesity syndrome in third trimester: (4) Obesity (BMI 30-39.9): Maternal Data Information Final TRACY: 02/15/23 Gestational age: 39 0/7 Details Operative Information Date of Procedure: 02/08/23 Pre-Operative Diagnosis: 39 weeks, previous c/s Post-Operative Diagnosis: same Indications for : Repeat Elective Classification: Scheduled Procedure Type: low transverse panelboard operator #1: Clau Lizama panelboard operator #2: Andrei Lu MS3 Type of Anesthesia: Spinal Anesthesiologist: Leandra Lees Special Medications: duramorph Antibiotic Given: Ancef 2 grams IV x1 Drain: Pitt to straight drain Estimated Blood Loss: 700 Fluids Replaced: 1100 Procedure Start Time: 12:26 Procedure Stop Time: 13:08 Time of Delivery: 01:34 Findings Description of Procedure: The patient was taken to the operating room. She was prepped and draped in the dorsal supine position with a leftward tilt. A Pfannenstiel skin incision was made approximately 2 cm above the symphysis pubis and carried through to underlying layer fascia with the scalpel. The fascia was incised incised in the midline and extended laterally with the Llanes scissors. The fascia was dissected off the rectus muscles with blunt and sharp dissection. The rectus muscles were in the midline and the peritoneum was entered bluntly. The peritoneal incision was stretched and the bladder blade was placed. The uterine incision was made in a low transverse fashion with the scalpel and extended superiorly and inferiorly with blunt dissection. The amniotic membranes were ruptured bluntly and clear amniotic fluid returned. The infant's head was brought to the incision in the flexed position and unable to engage in the incision. I therefore asked for the Kiwi vacuum and placed this on a flexion point created section of 550 mmHg. We pulled the head to the incision but with fundal pressure and gentle traction we were unable to deliver the head and there is 1 pop-off. I attempted to replace the vacuum but the suction would not hold. I could not get the head to engage and deliver through the incision despite stretching the incision again and using bandage scissors to cut the rectus muscles on the left. The infant was unengaged and therefore I decided to deliver the breech. Both feet were grasped and with gentle upward traction on the head and gentle downward traction on the legs I was able to bring the feed the out to the trunk. He was turned to back up. The arms were swept out individually. Despite placing some traction on the maxilla and using fundal pressure and we I was unable to easily deliver the head. I then extended the incision again with the bandage scissors and used the Bovie to extend the rectus muscle incision on the right. Then finally able to deliver the head. The cord was clamped and cut quickly because the was not initially vigorous. There had been a loose nuchal cord around the shoulders and neck and also 1 around the body that had been reduced during the delivery. was taken to the warmer where the parallel computing software engineer was present. The placenta was delivered with fundal massage and gentle traction in the patrick dard fashion. The uterus was exteriorized and cleared of all clots and debris. The cervix was dilated with a ring forcep. The uterine incision was closed with #1 Vicryl in a running locked fashion. A second layer of the same suture was used in an imbricating fashion to obtain hemostasis through some bleeding sinuses on the left. An additional [id number] suture was needed in the left corner of the incision and an excellent hemostasis was noted. The incision was examined and was found to be hemostatic. The uterus was placed back into the peritoneal cavity and hemostasis was again c onfirmed. The rectus muscles were examined and any bleeding was Bovie cauterized. The parietal peritoneum and rectus muscles were closed en bloc with an 0 Vicryl running suture. The rectus fascia was examined and any bleeding was Bovie cauterized and the rectus fascia was closed with 1 Vicryl suture in a running standard fashion. The subcutaneous tissue was examining and any bleeding was Bovie cauterized. The subcutaneous tissue was reapproximated with 3-0 Vicryl suture. The skin was closed in a subcuticular fashion by the MEDIA BUYER with me present in the labor and delivery suite. I performed the remainder of the procedure with assistance. All sponge, lap, and needle counts were correct. The patient was taken to her room for recovery in a stable condition. Presentation: Positive for Vertex Amniotic Membrane Rupture Type: Artificial Amniotic Fluid Description: Clear Placental Delivery Description: Expressed Placenta Disposition: [facility] Cord Vessel Description: 3 Vessels Cord Entanglement: Around neck x 1, loose and - (around body x 1 loose) Nuchal Cord Compression: Without compression Cord Gases: ABG and VBG Infant A Gender: Male (1 minute): 7 (5 minute): 9 Delayed Cord Clamping: No Complications Complications: none
[2023-02-08] MEDS: Oxytocin 15 Units/NS 250ml 15 UNITS/250 ML IV.SOLN 83 UNITS IV (13:25)
[2023-02-08] MEDS: Ketorolac 30 MG/ML Syringe IV ×2 (13:40→19:51)
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
[2023-02-08] MEDS: Lactated Ringers 1,000 ML 100 ML IV (16:45)
[2023-02-09] VITALS (11 sets, daily range): BP systolic 114–131; BP diastolic 58–71; PULSE 66–88; RESP 15–18; TEMP 36.1–37; O2SAT 94–98
[2023-02-09] MEDS: Enoxaparin 40 MG/0.4 ML Syringe SC (01:07)
[2023-02-09] MEDS: Acetaminophen 500 MG Tablet 1000 MG PO ×4 (01:07→18:15)
[2023-02-09] MEDS: 0.9% Saline Lock 10 ML Syringe IV ×2 (01:55→08:12)
[2023-02-09] MEDS: Ketorolac 30 MG/ML Syringe IV ×2 (01:55→08:11)
[2023-02-09 05:37] LABS: Hematocrit 31.9 % (37-47); Hemoglobin 10.5 g/dL (12.0-15.0); Mean Corp Hgb Conc 32.9 g/dL (32-36); Mean Corpuscular Hgb 28.5 pg (27.0-32.0); Mean Corpuscular Volume 86.4 fL (81-99); Mean Platelet Vol. 10.3 fl (6.2-12.0); Platelet Count 238 K/mm3 (150-450); RBC Distribution Width CV 13.2 % (11.6-14.6); RBC Distribution Width SD 41.1 fl (35.1-43.9); Red Blood Count 3.69 M/mm3 (4.2-5.4); White Blood Count 16.1 K/mm3 (4.4-11.0)
--- NOTE | 2023-02-09 09:10 | PCM.DC.SUM ---
Providers Date of Admission: 02/08/23 Primary Care Physician: Dr. Abby Majano MD Reason For Visit: REPEAT SECTION Diagnosis Discharge Diagnosis (1) 39 weeks gestation of : Status: Acute Code(s): Z3A.39 - 39 weeks gestation of (2) Previous delivery affecting , delivered: Status: Acute Code(s): O34.219 - Maternal care for unspecified type scar from previous delivery (3) Maternal obesity syndrome in third trimester: Status: Acute Code(s): O99.213 - Obesity complicating , third trimester (4) Obesity (BMI 30-39.9): Status: Acute Code(s): E66.9 - Obesity, unspecified Medications at Discharge Home Medications fexofenadine 180 mg tablet (Yuki Allergy) 180 mg PO DAILY Check with primary doctor 01/29/19 omeprazole 20 mg capsule,delayed release 20 mg PO DAILY Check with primary doctor 12/22/21 prenat.vits,larisa,[id number] 1 tab PO DAILY Check with primary doctor 06/15/22 Hospital Course Operations section Summary of Care Provided Hospital Course: Repeat cesaran section. Hospital course was uneventful. Physical Exam Narrative Dressing is dry and intact Const alert and no apparent distress General Appearance: cooperative and comfortable Exam Limitations: no limitations HEENT normocephalic Eyes General Eye: normal appearance of both eyes Neck full ROM General: normal visual inspection Chest Chest: symmetrical chest wall rise Resp normal respiratory effort and normal air movement Effort and Inspection: symmetric chest movement Auscultation: clear to auscultation bilaterally Cardio regular rate and regular rhythm GI normal to inspection, nondistended, normoactive bowel sounds Back/Spine normal ROM Extremity full ROM and no calf tenderness General Extremity: normal exam except as noted Skin no rashes or lesions noted Neuro CN's II-XII intact bilaterally Psych mental status grossly normal Weight / BMI Weight Weight: 235 lb Body Mass Index (BMI) 36.8 ABG / Lab / Microbiology Data Result Diagrams: 02/09/23 05:30 Laboratory: Laboratory Results - last 24 hr 02/08/23 10:00: WBC 9.8, RBC 4.43, Hgb 12.4, Hct 37.5, MCV 84.7, MCH 28.0, MCHC 33.1, RDW Std Deviation 40.3, RDW Coeff of Ayse 13.2, Plt Count 258, MPV 10.1, Immature Gran % (Auto) 1.400 H, Neut % (Auto) 68.4, Lymph % (Auto) 21.4, [place] % (Auto) 7.7, Eos % (Auto) 0.6, Baso % (Auto) 0.5, Absolute Neuts (auto) 6.7, Absolute Lymphs (auto) 2.10, Nucleated RBC % 0 02/08/23 10:00: Blood Type AB POSITIVE, Antibody Screen NEGATIVE 02/08/23 10:00: Syphilis Total Ab Non-reactive 02/09/23 05:30: WBC 16.1 H, RBC 3.69 L, Hgb 10.5 L, Hct 31.9 L, MCV 86.4, MCH 28.5, MCHC 32.9, RDW Std Deviation 41.1, RDW Coeff of Ayse 13.2, Plt Count 238, MPV 10.3 D/C Instructions Discharge Diet: No restrictions Discharge Activity: Return to Normal Activity May resume sexual activity in: 6-8 weeks Weight Bearing Status: Weight bearing as tolerated Call your doctor if your incision/area has: Continuous Slow Oozing, Sudden Increased Bleeding, Increased Pain/ Swelling, Increased Redness, Foul Smelling Discharge and Swelling at the incision site Call your doctor if you observe: Fever of 101 or Higher, Inability to urinate, Inability to have a bowel movement, Using more than 1 pad per hour, Dizziness, Chest pain, Calf discomfort and Uncontrolled pain Change Dressing in: leave in place till F/U Remove Dressing in: leave in place till F/U Please Follow Up With: Jennifer Rushing MD When: 1 week Meaningful Use Info Meaningful Use Diagnoses (Choose all that apply): None applicable Discharge Plan Admission Admit Date/Time: 02/08/23 09:30 Primary Reason for Your Visit: Repeat section Attending Provider: Jennifer Rushing Primary Care Provider: Abby Majano Discharge Orders/Prescriptions Prescriptions: No Action fexofenadine [Yuki Allergy] 180 mg tablet 180 mg PO DAILY omeprazole 20 mg capsule,delayed release(DR/EC) 20 mg PO DAILY prenat.vits,larisa,[id number] Tablet 1 tab PO DAILY Referrals / Follow Up: Oleghe,Efewongbe, MD [Primary Care Provider] - Disposition Disposition (needs filled in before D/C Order can be placed): Home, Self Care
--- NOTE | 2023-02-09 11:37 | NURSING ---
1115- This RN received report from Adrien Singh RN and will be resuming care at this time.
[2023-02-09] MEDS: Senna/Docusate Sodium 1 Tablet PO (12:03)
[2023-02-09] MEDS: Ibuprofen 600 MG Tablet PO ×2 (13:54→19:49)
[2023-02-10] MEDS: Acetaminophen 500 MG Tablet 1000 MG PO ×2 (00:09→05:50)
[2023-02-10] MEDS: Ibuprofen 600 MG Tablet PO ×2 (02:01→09:02)
[2023-02-10 02:02] VITALS: BP 125/61; PULSE 67; RESP 16; TEMP 36.4
--- NOTE | 2023-02-10 06:57 | PCM.DC.SUM ---
Providers Date of Admission: 02/08/23 Primary Care Physician: Dr. Abby Majano MD Reason For Visit: REPEAT SECTION Diagnosis Discharge Diagnosis (1) 39 weeks gestation of : Status: Acute Code(s): Z3A.39 - 39 weeks gestation of (2) Previous delivery affecting , delivered: Status: Acute Code(s): O34.219 - Maternal care for unspecified type scar from previous delivery (3) Maternal obesity syndrome in third trimester: Status: Acute Code(s): O99.213 - Obesity complicating , third trimester (4) Obesity (BMI 30-39.9): Status: Acute Code(s): E66.9 - Obesity, unspecified Medications at Discharge Home Medications fexofenadine 180 mg tablet (Yuki Allergy) 180 mg PO DAILY Check with primary doctor 01/29/19 omeprazole 20 mg capsule,delayed release 20 mg PO DAILY Check with primary doctor 12/22/21 prenat.vits,larisa,[id number] 1 tab PO DAILY Check with primary doctor 06/15/22 Hospital Course Operations section Summary of Care Provided Hospital Course: Patient was for a repeat section. Hospital course was uneventful. Physical Exam Narrative Dressing is dry and intact. Patient seen at bedside. Ambulating and voiding without difficulty. Denies any headache, dizziness, vision changes, SOB or CP. Pain controlled by PO Tylenol and Motrin. Desires discharge home today. Const alert and no apparent distress General Appearance: cooperative and comfortable Exam Limitations: no limitations HEENT normocephalic Eyes General Eye: normal appearance of both eyes Neck full ROM General: normal visual inspection Chest Chest: symmetrical chest wall rise Resp normal respiratory effort and normal air movement Effort and Inspection: symmetric chest movement Auscultation: clear to auscultation bilaterally Cardio regular rate and regular rhythm GI normal to inspection, nondistended, normoactive bowel sounds Back/Spine normal ROM Extremity full ROM and no calf tenderness General Extremity: normal exam except as noted Skin no rashes or lesions noted Neuro CN's II-XII intact bilaterally Psych mental status grossly normal Weight / BMI Weight Weight: 235 lb Body Mass Index (BMI) 36.8 ABG / Lab / Microbiology Data Result Diagrams: 02/09/23 05:30 D/C Instructions Discharge Diet: No restrictions May resume sexual activity in: 6-8 weeks Weight Bearing Status: Weight bearing as tolerated Call your doctor if your incision/area has: Continuous Slow Oozing, Sudden Increased Bleeding, Increased Pain/ Swelling, Increased Redness, Foul Smelling Discharge and Swelling at the incision site Call your doctor if you observe: Fever of 101 or Higher, Inability to urinate, Inability to have a bowel movement, Using more than 1 pad per hour, Dizziness, Chest pain, Calf discomfort and Uncontrolled pain Please Follow Up With: Jennifer Rushing MD When: 1 week Meaningful Use Info Meaningful Use Diagnoses (Choose all that apply): None applicable Discharge Plan Admission Admit Date/Time: 02/08/23 09:30 Primary Reason for Your Visit: Repeat section Attending Provider: Jennifer Rushing Primary Care Provider: Abby Majano Discharge Orders/Prescriptions Prescriptions: No Action fexofenadine [Yuki Allergy] 180 mg tablet 180 mg PO DAILY omeprazole 20 mg capsule,delayed release(DR/EC) 20 mg PO DAILY prenat.vits,larisa,[id number] Tablet 1 tab PO DAILY Referrals / Follow Up: Abby Majano MD [Primary Care Provider] - Disposition Disposition (needs filled in before D/C Order can be placed): Home, Self Care
[2023-02-10 09:00] VITALS: BP 149/62; PULSE 93; RESP 16; TEMP 36.4
[2023-02-10] MEDS: Senna/Docusate Sodium 1 Tablet PO (10:35)
== END 2023-02-10 11:10 | disposition home or self-care (01) | DRG 788 ==
PROVIDERS: Admitting Provider Obstetrics & Gynecology; PCP Internal Medicine; Referring Provider Obstetrics & Gynecology; Visit Provider Obstetrics & Gynecology
PROC: 10D00Z1 Extraction of Products of Conception, Low, Open Approach (ICD-10-PCS; CPT 59514; principal; 2023-02-08 11:45)
DX: O34.211 Maternal care for low transverse scar from previous cesarean delivery (principal); E66.9 Obesity, unspecified; O99.214 Obesity complicating childbirth; O69.81X0 Labor and delivery complicated by cord around neck, without compression, not applicable or unspecified; Z3A.39 39 weeks gestation of pregnancy; Z37.0 Single live birth
CPT/HCPCS: 59025; 59050; 85025; 85027; 86780; 86850; 86900; 86901; 99221; 99252; J7120; A4216; G0378; G0463; J2405

== ENCOUNTER → 2023-07-05 | Outpatient (CLI) | payer BC, SELFPAY ==
[2023-07-05 12:28] LABS: Absolute Neutrophil Count 3.6 X10^3/uL (2.0-7.7); Basophil# 0.06 X10^3/uL; Eosinophil# 0.11 X10^3/uL; Eosinophils% 1.9 % (0-5); Hematocrit 43.3 % (37-47); Lymphocyte % 28.7 % (19-41); Mean Corp Hgb Conc 34.6 g/dL (32-36); Mean Corpuscular Hgb 29.4 pg (27.0-32.0); Mean Corpuscular Volume 84.7 fL (81-99); Mean Platelet Vol. 9.6 fl (6.2-12.0); Monocyte# 0.46 X10^3/uL; Monocyte% 7.8 % (0-10); NRBC Flagged by Analyzer 0 % (0-5); Neutrophil # 3.56 X10^3/uL (2.7-7.7); Neutrophil % 60.1 % (47-70); Platelet Count 272 K/mm3 (150-450); RBC Distribution Width CV 12.8 % (11.6-14.6); RBC Distribution Width SD 39.8 fl (35.1-43.9); Red Blood Count 5.11 M/mm3 (4.2-5.4); White Blood Count 5.9 K/mm3 (4.4-11.0)
[2023-07-05 13:23] LABS: ALB/GLOB Ratio 1.1 RATIO (0.9-2.4); AST(SGOT) 404 U/L (15-37); Alanine Aminotransfer ALT/SGPT 1046 U/L (13-56); Albumin, Serum 4.3 g/dL (3.2-5.0); Alkaline Phosphatase 283 U/L (45-117); Amylase 43 U/L (25-115); Anion Gap 6 (5-15); BUN 13 mg/dL (7-18); BUN/Creat Ratio 15.6 RATIO (10-20); Chloride 108 mmol/L (98-107); Creatinine, Serum 0.84 mg/dL (0.55-1.02); EST Glomerular Filtration Rate 84 mL/min (>60); Est Glom Filt Rate - Afr Amer 101 mL/min (>60); Globulin 3.8 g/dL (2.2-4.2); Glucose 91 mg/dL (74-106); Lipase 53 U/L (13-75); Potassium 4.1 mmol/L (3.5-5.1); Protein, Total 8.1 g/dL (6.4-8.2); Sodium Level 140 mmol/L (136-145)
--- NOTE | 2023-07-05 15:48 | US_ITS ---
STUDY: ABDOMINAL ULTRASOUND - RIGHT UPPER QUADRANT REASON FOR VISIT: Female, 32 years old RUQ episodic abdominal pain and vomiting. TECHNIQUE: Ultrasound evaluation of the right upper quadrant was performed with real-time and static buitrago-scale imaging. TECHNICAL QUALITY: Limited. Examination limited by bowel gas. COMPARISON: None. FINDINGS: Liver: The liver measures 18.0 cm. There is normal echogenicity of the liver. The bile ducts are within normal limits. There is hepatic color flow. The direction of portal flow is hepatopetal. There is a small hyperechoic structure within the posterior aspect of the right liver lobe measuring 1.2 x 0.8 x 0.7 cm. Gallbladder: Normal distended gallbladder. The gallbladder wall measures maximally 5 mm, with most of the gallbladder wall maintaining normal size. There is a negative sonographic Maddox''s sign. There is no pericholecystic fluid. There are multiple echogenic structures within the gallbladder, consistent with multiple small gallstones. Common Bile Duct (C.B.D.): The common bile duct measures 1.4 mm. Pancreas: Normal size of the head, body and tail of the pancreas. There is normal echogenicity of the pancreas. There is no demonstrated pancreatic mass or cyst. Right Kidney: Normal size of the right kidney. The right kidney measures 11.8 x 4.8 x 4.3 cm. Normal renal cortex. The right cortex measures 1.5 cm. There is no demonstrated renal mass or cyst. There is no right hydronephrosis. US/Abdomen Limited IMPRESSION: Multiple gallstones with areas of gallbladder wall revealing mild thickening up to 5 mm which could represent volume averaging artifact from surrounding adjacent fat versus focal thickening and therefore cannot entirely exclude acute cholecystitis. Remainder of the gallbladder wall maintains normal size. If indicated, this can be further assessed with HIDA scan. Small echogenic structure within the right liver lobe most commonly associated with hemangioma given patient''s age. If indicated, this can be further confirmed with CT or MRI with intravenous contrast, three-phase protocol. Remainder of the right upper quadrant ultrasound unremarkable. Electronically Signed: Justyna Reed MD at 17:47 EDT ,
== END | disposition home or self-care (01) ==
LOC: OPUS 15:47
PROVIDERS: PCP Internal Medicine; Referring Provider Family Medicine; Visit Provider Family Medicine
DX: R10.13 Epigastric pain (principal)
CPT/HCPCS: 36415; 76705; 80053; 82150; 83690; 85025

== ENCOUNTER 2023-07-31 10:40 | Day surgery (SDC) | payer BC, SELFPAY ==
[2023-07-31] VITALS (7 sets, daily range): BP systolic 102–122; BP diastolic 56–75; PULSE 57–79; RESP 16; TEMP 35.8–36.5; O2SAT 93–100; BMI 33.1
--- NOTE | 2023-07-31 | GASB_PTH ---
PATIENT: JENNIFER KONG LOC: EN U#:[id number] AGE/SX: 32/F ROOM: RE07/31/[address]: Dr. Ami Peralta MD : 1990 BED: DIS: 07/31/2023 SPEC #: [id number] RECD: 07/31/23 15:37 STATUS: MARGOTH MARCO A #: [id number] LUIS DANIEL: 07/31/23 00:[address]: Ami Peralta DEPT: SURGICAL PATHOLOGY RECD BY: Emma Lemus ENTERED: 08/01/23 08:14 SP TYPE: Gastric Bx OTHR DR: Dr. Abby Majano MD Tissues: A - Gastric mucous membrane B - Gastric mucous membrane C - Gastric mucous membrane D - Esophageal mucous membrane Procedures: Special Stain Group II Surgery Specimen Level IV Alcian Blue/PAS (control) HEADER OPERATION: EGD with biopsy and polypectomy PRE-OP DIAGNOSIS: Cholelithiasis, GERD TISSUE SUBMITTED: A - Antrum biopsy for H. pylori and histology, B - Gastric polyp, C - Gastroesophageal junction biopsy, D - Proximal esophagus biopsy MICROSCOPIC DIAGNOSIS A. Antrum, biopsy: Mild gastritis. See microscopic description and comment. B. Gastric polyp, biopsy: Fragments of fundic gland polyp. C. Gastroesophageal junction, biopsy: A fragment of gastric mucosa with chronic inflammation. Intestinal metaplasia (goblet cell metaplasia) not identified. See comment. D. Proximal esophagus, biopsy: Fragments of gastroesophageal mucosa with mild chronic inflammation. Intestinal metaplasia (goblet cell metaplasia) not identified. See comment. SJ:rg 08/02/2023 COMMENT A. The results of immunohistochemistry for Helicobacter pylori will be reported separately ([id number]). C & D. Alcian blue/PAS stain with matched control supports the above diagnosis. MICROSCOPIC DESCRIPTION Slides are reviewed. A. The specimen shows fragments of gastric mucosa with chronic inflammatory cell infiltrates in the lamina propria consisting of lymphocytes and plasma cells, consistent with mild chronic gastritis. GROSS DESCRIPTION A - Received in fixative is one container labeled with the patient's name and designated antrum biopsy. The specimen consists of one irregular fragment of light hoover soft tissue that measures 0.3 x 0.3 x 0.1 cm. The specimen is totally submitted in one cassette. B - Received in fixative is one container labeled with the patient's name and designated gastric polyp. The specimen consists of four variable sized pieces of hoover-pink polyp measuring in aggregate 2.0 x 1.5 x 0.8 cm and 0.4 to 1.2 cm in greatest dimension. The smaller polyps are bisected and the two larger polyps are serially sectioned. The entire specimen is submitted in two cassettes. C - Received in fixative is one container labeled with the patient's name and designated GE junction biopsy. The specimen consists of one irregular fragment of light hoover soft tissue that measures 0.6 x 0.3 x 0.1 cm. The specimen is totally submitted in one cassette. D - Received in fixative is one container labeled with the patient's name and designated proximal esophagus biopsy. The specimen consists of two irregular fragments of light hoover soft tissue that in aggregate measure 0.5 x 0.3 x 0.1 cm. The specimen is totally submitted in one cassette. / SJ:rg 08/01/2023 TC:3 CPT: 93393 x4, 46336 x2
--- NOTE | 2023-07-31 11:15 | HP.PCM_ITS ---
History and Physical Date of Admission: 07/31/23 Date of Service: 07/13/23 MR#: [id number] Acct: [id number] Name: JENNIFER KONG Rep #: [id number] : 1990 Provider: Dr. Ami Peralta MD Age/Sex: 32/F Location: [facility] Status: Signed Intake Vital Signs 02/08/2309:50 07/13/2308:43 Height 5 ft 7 in 5 ft 7 in Weight: 211 lb 8 oz BMI 33.1 BP 138/82 H Blood Pressure Location Rt brachial Position Sitting Respiration 17 Pulse 71 Pulse Source Monitor Pulse Oximetry (%) 100 Oxygen Delivery Method room air Intake Visit Reasons: Gallbladder problems Chief Complaint: gallbladder problems Is patient in pain?: Yes Allergies No Known Allergies Allergy (Verified 07/13/23 08:46) Medications fexofenadine 180 mg tablet (Yuki Allergy) 180 mg PO DAILY Check with primary doctor 01/29/19 [History Confirmed 07/13/23] prenat.vits,larisa,gzi-wcfl-bhkpf 1 tab PO DAILY Check with primary doctor 06/15/22 [History Confirmed 07/13/23] pantoprazole 40 mg tablet,delayed release 40 mg PO DAILY #30 tabs 07/13/23 [Rx Confirmed 07/13/23] PFSH Medical History 39 weeks gestation of Anxiety Asthma COVID-19 vaccine series completed Environmental allergies Frequent headaches GERD (gastroesophageal reflux disease) Maternal obesity syndrome in third trimester Obesity (BMI 30-39.9) Pre-eclampsia Surgical History History of hx of leg surgery Previous delivery affecting , delivered S/P LASIK surgery of both eyes Family History Father COPD (chronic obstructive pulmonary disease) Arthritis Autoimmune disorder Skin cancerMother HypertensionGrandmother Hypertension High cholesterol Kidney disease Melanoma Skin cancerAunt Breast cancerGrandfather CVA (cerebral vascular accident)Grandmother CVA (cerebral vascular accident)Other Diabetes Social History Smoking Status: Never smoker alcohol intake: current alcohol intake frequency: a few times a month Alcohol type: beer, wine and hard liquor substance use type: does not use what type of physical activity do you participate in: none HPI HPI HPI: 32-year-old female presents due to gallstones. Patient states that she has been having issues with abdominal pain in the epigastric region waking her up at night. Patient states she eats about 730 goes to bed about 10 and she is woken up about 3 AM with the pain and will have diarrhea every time she has had these episodes and did have vomiting t with 2 of the episodes. Patient states she did try to take some ibuprofen. Patient has been on from omeprazole for 3 years and before that was on another anti-acid unsure of the name. Patient never had an EGD. Patient had an ultrasound the gallbladder showed multiple gallstones normal wall no pericholecystic fluid normal common bile duct. Patient denies any right upper quadrant pain nausea vomiting 30 minutes to an hour after eating. Current symptoms: Denies constipation Associated symptoms: Reports diarrhea; Denies constipation ROS General General: No weight change, appetite, fatigue, colon cancer or breast cancer HEENT HEENT: Yes eye surgery; No difficulty swallowing, eye injury, swollen glands or hoarseness Endo Endocrine: No thyroid disease, diabetes mellitus, thyroid cancer, Hair loss, heat intolerance or cold intolerance Skin Skin: No rash or changing moles Musc Musculoskeletal: No back problems, arthritis, rheumatoid arthritis, gout or joint pain Cardio Cardiovascular: No murmur, pacemaker, heart disease, atrial fibrillation, high blood pressure, heart attack, heart stent, palpitations, shortness of breat with exertion or chest pain Psych Psychiatric: No depression, anxiety or hearing voices Resp Respiratory: No shortness of breath, No sleep apnea, No cough, No COPD, Yes asthma, No emphysema and No wheezing Gastro Gastrointestinal: Yes abdominal pain, Yes nausea or vomiting, Yes diarrhea, No constipation, No blood in stool, Yes acid reflux, No hemorrhoids, No ulcers, Yes gallbladder problem and No black,tarry stools Morris Hematologic: No blood thinners, No blood disorders, No bleeding, No anemia and No blood clots Neuro Neurologic: No numbness and No tingling Exam Const General: cooperative, healthy appearing, comfortable and no acute distress HENMT Head: normocephalic and atraumatic Neck Neck: supple Resp Effort & Inspection: normal respiratory effort Cardio Rate: regular rate GI Inspection: non-distended Palpation: soft, no hernias and nontender Skin General: no rashes or lesions noted Neuro General: CN's II-XI intact bilaterally Extrem General: normal to inspection Psych Mental Status: mental status grossly normal Attitude: cooperative Assessment and Plan Assessment and Plan (1) Cholelithiasis: Status: Acute (2) GERD (gastroesophageal reflux disease): Status: Chronic Qualifiers: Esophagitis presence: esophagitis presence not specified Qualified Code(s): K21.9 - Gastro-esophageal reflux disease without esophagitis Medications: New pantoprazole 40 mg PO DAILY 30 tabs 5RF Discontinued omeprazole Discontinued Reason: Order Changed 20 mg PO DAILY Check with primary doctor Plan Did discussed with patient that her pain is not consistent with gallbladder etiology more consistent with gastritis or reflux. We will change patient from omeprazole to Protonix see if that works better also increase the dose to 40 mg from 20 mg. Also plan for an EGD. Review patient's ultrasound personally and with the patient. Also discussed with patient after started having right upper quadrant pain nausea vomiting about 30 minutes to an hour after eating fatty greasy foods would recommend having her gallbladder out at that time. I have discussed the above with the patient. I have offered the patient EGD for evaluation. I have explained the risks/benefits of the procedure and described the procedure. I have discussed the risks with the patient, including but not limited to: infection, bleeding, perforation of the GI tract requiring emergency surgery, inability to complete the procedure, injury to any internal organs, complications of anesthesia, etc. - the patient understands and agrees to proceed. I have answered all the patient's questions to the patient's satisfaction and the patient has no further questions. Ami Peralta M.D. Pager: [phone] [facility] [address] [place] [address], [address] [place] [address] Office: [phone] Coding Level of Care Code Off vis,new,level 3 Diagnoses Cholelithiasis K80.20 Gastroesophageal reflux disease, unspecified whether esophagitis present K21.9 Esophagitis presence: esophagitis presence not specified 07/14/23 1150 <Electronically signed by Ami Peralta MD> Date Ami Peralta MD
[2023-07-31 11:21] LABS: Internal QC Validated? YES +Cl - CLEAR BKGD; Pregnancy, Urine Negative Negative; Record Kit Lot#,Urine Preg 667200
[2023-07-31] MEDS: Lactated Ringers 1,000 ML 15 ML IV (11:28)
--- NOTE | 2023-07-31 11:45 | IMM_PTH ---
PATIENT: JENNIFER KONG LOC: EN U#:[id number] AGE/SX: 32/F ROOM: RE07/31/[address]: Dr. Ami Peralta MD : 1990 BED: DIS: 07/31/2023 SPEC #: [id number] RECD: 08/01/23 09:51 STATUS: MARGOTH REQ #: [id number] LUIS DANIEL: 07/31/23 11:[address]: Ami Peralta DEPT: IMMUNOHISTOCHEMISTRY RECD BY: Opal Tavera ENTERED: 08/01/23 09:51 SP TYPE: IMMUNO OTHR DR: Dr. Abby Majano MD Tissues: A - Stomach, NOS Procedures: H Pylori (initial) PHYSICIAN & INSTITUTION [place] [id number] SPECIMEN INFORMATION: Tissue Source: A - Antrum biopsy Clinical Info: Cholelithiasis, GERD Specimen Number: [id number] CPT code: 88075 METHODOLOGY: Deparaffinized sections of prefer/formalin-fixed tissue or PAP/DQ stained slides are incubated with monoclonal/polyclonal antibodies/oligonucleotide probes. Localization is made via biotin free immunoperoxidase method. Appropriate controls are performed and reacted as expected. Results on target cell population are indicated in the following table: RESULTS: ANTIBODY / CLONE RESULT Block A H Pylori (polyclonal) negative These tests were developed and their performance characteristics determined by [facility]. They may not have been cleared or approved by the U.S. Food and Drug Administration. The FDA has determined that such clearance or approval is not necessary. The above immunohistochemical/dualISH markers are ordered and reviewed by the Pathologist. INTERPRETATION: A. Antrum, biopsy: Negative for Helicobacter pylori organisms. SJ:ghulam 08/02/2023
--- NOTE | 2023-07-31 11:56 | OP.CCLET_ITS ---
07/31/2023 Abby Majano MD [address] [place] [address] [place] [address] Re : Upper GI endoscopy procedure for Annyokasta Rebollar Dear Dr. Majano This procedure was performed on Monday, July 31, 2023. My impressions and recommendations are as follows: Impressions : - Z-line irregular, 40 cm from the incisors. Biopsied. - Erythematous mucosa in the esophagus. Biopsied. - Normal examined duodenum. - Erythematous mucosa in the antrum. Biopsied. - Multiple gastric polyps. Resected and retrieved. Recommendations : - Await pathology results. - Discharge patient to home. - Resume previous diet. - Continue present medications. My findings are described in the full procedure note, which is enclosed. If I can be of further assistance, please feel free to contact me at Doctor phone number(s): , Work: . Sincerely, MD Ami Sykes MD 07/31/2023 11:55:33 AM This report has been signed electronically.
--- NOTE | 2023-07-31 11:56 | OP.EGD_ITS ---
Patient Name: Ann Rebollar Procedure Date: 07/31/2023 11:13 AM Date of : 1990 Age: 32 Procedure: Upper GI endoscopy Indications: Heartburn Providers: Ami Peralta MD Referring MD: Abby Majano MD Medicines: Monitored Anesthesia Care Patient Profile: This is a 32 year old female. Complications: No immediate complications. Procedure: Pre-Anesthesia Assessment: - Prior to the procedure, a History and Physical was performed, and patient medications and allergies were reviewed. The patient's tolerance of previous anesthesia was also reviewed. The risks and benefits of the procedure and the sedation options and risks were discussed with the patient. All questions were answered, and informed consent was obtained. Prior Anticoagulants: The patient has taken no anticoagulant or antiplatelet agents. ASA Grade Assessment: Per anesthesia. After reviewing the risks and benefits, the patient was deemed in satisfactory condition to undergo the procedure. After obtaining informed consent, the endoscope was passed under direct vision. Throughout the procedure, the patient's blood pressure, pulse, and oxygen saturations were monitored continuously. The Endoscope was introduced through the mouth, and advanced to the second part of duodenum. The upper GI endoscopy was accomplished without difficulty. The patient tolerated the procedure well. Scope In: 11:37:03 AM Scope Out: 11:49:40 AM Total Procedure Duration Time 0 hours 12 minutes 37 seconds Findings: The Z-line was irregular and was found 40 cm from the incisors. Biopsies were taken with a cold forceps for histology. Localized moderate mucosal changes characterized by erythema were found in the proximal esophagus. Biopsies were taken with a cold forceps for histology. The examined duodenum was normal. Mildly erythematous mucosa without bleeding was found in the gastric antrum. Biopsies were taken with a cold forceps for histology. Biopsies were taken with a cold forceps for Helicobacter pylori cultures. Multiple 3 to 7 mm pedunculated and sessile polyps with no bleeding and no stigmata of recent bleeding were found in the gastric body. The polyp was removed with a hot snare. Resection and retrieval were complete. The cardia and gastric fundus were normal on retroflexion. Impression: - Z-line irregular, 40 cm from the incisors. Biopsied. - Erythematous mucosa in the esophagus. Biopsied. - Normal examined duodenum. - Erythematous mucosa in the antrum. Biopsied. - Multiple gastric polyps. Resected and retrieved. Recommendation: - Await pathology results. - Discharge patient to home. - Resume previous diet. - Continue present medications. Procedure Code(s): --- Professional --- 42064, Esophagogastroduodenoscopy, flexible, transoral; with removal of tumor(s), polyp(s), or other lesion(s) by snare technique 23351, 59, Esophagogastroduodenoscopy, flexible, transoral; with biopsy, single or multiple Diagnosis Code(s): --- Professional --- K22.89, Other specified disease of esophagus K31.89, Other diseases of stomach and duodenum K31.7, Polyp of stomach and duodenum R12, Heartburn CPT copyright 2021 [employer]. All rights reserved. The codes documented in this report are preliminary and upon room server review may be revised to meet current compliance requirements. MD Ami Sykes MD 07/31/2023 11:55:33 AM This report has been signed electronically. Number of Addenda: 0 Note Initiated On: 07/31/2023 11:13 AM
== END 2023-07-31 12:49 | disposition home or self-care (01) ==
LOC: EN 10:41 → AC 10:49
PROVIDERS: Anesthesiology; PCP Internal Medicine; Referring Provider Surgery; Visit Provider Surgery
PROC: 0DJ08ZZ Inspection of Upper Intestinal Tract, Via Natural or Artificial Opening Endoscopic (ICD-10-PCS; CPT 43235; principal; 2023-07-31 11:40)
DX: K21.00 Gastro-esophageal reflux disease with esophagitis, without bleeding (principal); K80.20 Calculus of gallbladder without cholecystitis without obstruction; K31.7 Polyp of stomach and duodenum; E66.9 Obesity, unspecified; Z68.33 Body mass index [BMI] 33.0-33.9, adult; J45.909 Unspecified asthma, uncomplicated; Z79.899 Other long term (current) drug therapy; K29.70 Gastritis, unspecified, without bleeding
CPT/HCPCS: 43251; 43239; 81025; 88305; 88313; 88342; J7120; J2405

== ENCOUNTER → 2023-11-08 | Outpatient (CLI) | payer BC, SELFPAY ==
--- OUTSIDE RECORDS SUMMARY | 2023-11-08 12:01 | XMS RPT_ITS | CCD ---
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 06/05/2020 C/S low transverse LASIK 05/10/2012 Lasik OU with Microkeratome by Dr. Malagon at [facility] in [place] LASIK 08/2012 PAST SURGICAL HISTORY OF rt ankle surgery Current Outpatient Medications Medication Sig Dispense Refill prental multivitamin 27 mg iron- 800 mcg tablet Take 1 tablet by mouth once daily. fexofenadine HCl (CLEMENTE ORAL) Take by mouth. fluticasone propionate (FLONASE NASAL) Use in the nose. albuterol sulfate 90 mcg/actuation Inhale 2 Puffs as instructed every 4 hours as needed. 1 Inhaler 3 OMEPRAZOLE ORAL Take by mouth. No current facility-administered medications for this visit. ALLERGIES: Environmental [Other] PERSONAL HISTORY: Social History Tobacco Use Smoking status: Never Smokeless tobacco: Never Vaping Use Vaping Use: Never used Substance Use Topics Alcohol use: Not Currently Comment: Socially Drug use: No FAMILY HISTORY: FAMILY HISTORY Problem Relation Age of Onset Diabetes Mother other (endomteriosis) Mother Diabetes Father Rheumatologic disease Father other (Autoimmune disorder) Father as a result of virus Melanoma Father No Known Problems Sister other (ulcerative colitis) Brother Diabetes Maternal Grandmother Cataract Maternal Grandmother Kidney Disease Maternal Grandmother Emphysema Maternal Grandfather Stroke Maternal Grandfather Stroke Paternal Grandmother No Known Problems Paternal Grandfather No Known Problems Son Heart Maternal Aunt REVIEW OF SYMPTOMS: GENERAL: denies fevers or chills ENDOCRINOLOGY: has not been on steroids Cardiology : denies palpitations or chest pain Respiratory: denies SOB or cough Hematology: denies history of prolonged bleeding or easy bruising or VTE Allergy: Denies history of personal or family history of allergy to anesthesia PHYSICAL EXAMINATION: VITALS: Blood pressure 120/72, weight 231 lb 9.6 oz (105.1 kg), last menstrual period 05/11/2022, currently . GENERAL: The patient is well nourished, well hydrated in no acute distress. , The patient is oriented to time, place, and person. NECK: Supple. No lynphadenopathy, normal thyroid, no thyromegaly. LUNGS: Clear to auscultation bilaterally. no wheezes, rhonchi or rales HEART: Regular rate and rhythm, Normal heart sounds, and No murmurs or gallops GENITALIA: Normal external genitalia, Urethral meatus normal, Bladder nontender, normal vagina and normal vaginal tone, normal cervix, normal uterus, size and consistency, normal adnexa without masses or tenderness, and perineum WNL WET PREP: Not indicated IMPRESSION: Estimated Date of Delivery: 02/15/23 PLAN: The risks/benefits/alternatives and personal involved for the planned c-s were reviewed with the patient. Her questions were answered to her satisfaction and she desires to proceed. Consent was signed. I reviewed with her postop instructions and expectations. I have reviewed and updated past medical and surgical history, medications and allergies Valerie Rdz M.D. documented in this encounter [facility] 02-01-2023 Miscellaneous Notes RR_ Feeling better this am from gastroenteritis she had yesterday. No fever or chills. Was able to stay hydrated and eat today. F/u in 1 week or prn. Valerie Rdz MD documented in this encounter [facility] 02-01-2023 Miscellaneous Notes Patient is already here for appointment today. Maribel Riley RN tylenol for fever Rest, push fluids. Does she need rx for antiemetic? Would reschedule to Monday to let her rest. Valerie Rdz MD 37w6d Patient has an OB appointment tomorrow morning. Patient vomited twice today. Also having loose stools, feeling chilled, achy, and having some cramping at the top of her abdomen. Questioning what she should do if she develops a fever. Advised that she can take Tylenol, rest and push fluids. Her BP was 130/81. Was recently around family who had a GI illness last week. Patient will keep her scheduled appointment tomorrow. To call epic beacon analyst provider if she develops a fever or has worsening symptoms until then. ANTONINA Santoyo RN documented in this encounter [facility] 02-01-2023 Instructions Blanquita Fontenot MA - 02/01/2023 8:53 AM EDT SEQUENTIAL SCREENINGS The [facility] offers sequential screenings for women who are interested in screenings for chromosomal abnormalities and certain defects during a . The sequential screen combines ultrasound and blood tests to determine the risk of chromosomal abnormalities, including Down's Syndrome (Trisomy 21) and Trisomy 18, as well as open neural tube defects including spina bifida. Ultrasound examination is performed between 11 weeks and 13 weeks gestational age. Blood tests are drawn after the ultrasound and again later in the between 15 and 21 weeks gestational age. Please let your physician know if you are interested in this testing. It will require an appointment with our fingerprint technician. This is not an ultrasound performed by a physician in our office during a routine visit. SIGNS AND SYMPTOMS OF LABOR 1. Contractions every 10 minutes or more often 2. Clear, pink, or brownish fluid (water) leaking from vagina 3. Feeling that baby is pushing down, pressure 4. Low, dull backache 5. Cramps that feel like a period 6. Cramps with or without diarrhea If you notice any of the above symptoms, contact our office at [phone] and ask to speak with a nurse. After hours, you can call [facility] at [phone] OR call [facility] at [phone] and ask to have the doctor epic beacon analyst paged. If you consider this an emergency, dial 9-1-1 or go to your nearest emergency department. NEED HELP? Are you dealing with a violent or abusive relationship? Are you a victim of rape or sexual assult? Call [facility] ([place]) 24 hour Crisis Hotline: 936.399.2794 or 493-478-0026. MANUAL Your Guide to a Healthy manual is now on-line. Visit [email or web address] to download your free copy documented in this encounter [facility] 01-25-2023 Miscellaneous Notes RR_ Doing well overall. Watches diet and heartburn better. Did take pepcid once and it helped. No contractions. Some back pain, uncomfortable. Good FM. NO VB/LOF. BP stable, at home 120s-130s/70s and low 80s. Some congestion. F/u in 1 week or prn. No symptoms/signs of preeclampsia. Valerie Rdz MD documented in this encounter [facility] 01-25-2023 Aurora Mahan Ma - 01/25/2023 10:42 AM EDT SEQUENTIAL SCREENINGS The [facility] offers sequential screenings for women who are interested in screenings for chromosomal abnormalities and certain defects during a . The sequential screen combines ultrasound and blood tests to determine the risk of chromosomal abnormalities, including Down's Syndrome (Trisomy 21) and Trisomy 18, as well as open neural tube defects including spina bifida. Ultrasound examination is performed between 11 weeks and 13 weeks gestational age. Blood tests are drawn after the ultrasound and again later in the between 15 and 21 weeks gestational age. Please let your physician know if you are interested in this testing. It will require an appointment with our fingerprint technician. This is not an ultrasound performed by a physician in our office during a routine visit. SIGNS AND SYMPTOMS OF LABOR 1. Contractions every 10 minutes or more often 2. Clear, pink, or brownish fluid (water) leaking from vagina 3. Feeling that baby is pushing down, pressure 4. Low, dull backache 5. Cramps that feel like a period 6. Cramps with or without diarrhea If you notice any of the above symptoms, contact our office at [phone] and ask to speak with a nurse. After hours, you can call doctors registry at [phone] OR call [facility] at [phone] and ask to have the doctor epic beacon analyst paged. If you consider this an emergency, dial 9--3 or go to your nearest emergency department. NEED HELP? Are you dealing with a violent or abusive relationship? Are you a victim of rape or sexual assult? Call [facility] ([place]) 24 hour Crisis Hotline: 951.365.9409 or 418-901-7529. MANUAL Your Guide to a Healthy manual is now on-line. Visit [email or web address] to download your free copy documented in this encounter [facility] 01-18-2023 Miscellaneous Notes RR_ No VB/LOF. Good FM. Some edema. 2+ DTRs, no clonus. Denies SIMPSON or visual changes. Some heartburn, trial pepcid as tums not helping. BP stable at home, BP log reviewed mosly 110s-120s/60s-70s. F/u in 1 week or prn> GBS done. Valerie Rdz MD documented in this encounter [facility] 01-18-2023 Instructions Stef Mahan Ma - 01/18/2023 8:35 AM EDT SEQUENTIAL SCREENINGS The [facility] offers sequential screenings for women who are interested in screenings for chromosomal abnormalities and certain defects during a . The sequential screen combines ultrasound and blood tests to determine the risk of chromosomal abnormalities, including Down's Syndrome (Trisomy 21) and Trisomy 18, as well as open neural tube defects including spina bifida. Ultrasound examination is performed between 11 weeks and 13 weeks gestational age. Blood tests are drawn after the ultrasound and again later in the between 15 and 21 weeks gestational age. Please let your physician know if you are interested in this testing. It will require an appointment with our fingerprint technician. This is not an ultrasound performed by a physician in our office during a routine visit. SIGNS AND SYMPTOMS OF LABOR 1. Contractions every 10 minutes or more often 2. Clear, pink, or brownish fluid (water) leaking from vagina 3. Feeling that baby is pushing down, pressure 4. Low, dull backache 5. Cramps that feel like a period 6. Cramps with or without diarrhea If you notice any of the above symptoms, contact our office at [phone] and ask to speak with a nurse. After hours, you can call doctors registry at [phone] OR call [facility] at [phone] and ask to have the doctor epic beacon analyst paged. If you consider this an emergency, dial 9-1- or go to your nearest emergency department. NEED HELP? Are you dealing with a violent or abusive relationship? Are you a victim of rape or sexual assult? Call [facility] ([place]) 24 hour Crisis Hotline: 733.950.1168 or 440-168-5446. MANUAL Your Guide to a Healthy manual is now on-line. Visit [email or web address] to download your free copy documented in this encounter [facility] 01-04-2023 Miscellaneous Notes RR_ No VB/LOF. Good Fm. BP at home stable, had one elevated at 142/75. Mild edema. No SIMPSON or changes in vision. Monitor BP. F/u in 2 weeks or prn. Plans repeat c/s. Valerie Rdz MD documented in this encounter [facility] 01-04-2023 Instructions Stef Mahan Ma - 01/04/2023 10:30 AM EST SEQUENTIAL SCREENINGS The [facility] offers sequential screenings for women who are interested in screenings for chromosomal abnormalities and certain defects during a . The sequential screen combines ultrasound and blood tests to determine the risk of chromosomal abnormalities, including Down's Syndrome (Trisomy 21) and Trisomy 18, as well as open neural tube defects including spina bifida. Ultrasound examination is performed between 11 weeks and 13 weeks gestational age. Blood tests are drawn after the ultrasound and again later in the between 15 and 21 weeks gestational age. Please let your physician know if you are interested in this testing. It will require an appointment with our fingerprint technician. This is not an ultrasound performed by a physician in our office during a routine visit. SIGNS AND SYMPTOMS OF LABOR 1. Contractions every 10 minutes or more often 2. Clear, pink, or brownish fluid (water) leaking from vagina 3. Feeling that baby is pushing down, pressure 4. Low, dull backache 5. Cramps that feel like a period 6. Cramps with or without diarrhea If you notice any of the above symptoms, contact our office at [phone] and ask to speak with a nurse. After hours, you can call doctors registry at [phone] OR call [facility] at [phone] and ask to have the doctor epic beacon analyst paged. If you consider this an emergency, dial 6-2-0 or go to your nearest emergency department. NEED HELP? Are you dealing with a violent or abusive relationship? Are you a victim of rape or sexual assult? Call [facility] ([place]) 24 hour Crisis Hotline: 753.540.1496 or 339-076-7164. MANUAL Your Guide to a Healthy manual is now on-line. Visit [email or web address] to download your free copy documented in this encounter [facility] 12-21-2022 Miscellaneous Notes Ann Rebollar is a 32 year old female who presents at 32w0d for a routine visit. Good movement. Denies headache, visual changes, chest pain, shortness of breath, vaginal bleeding, leakage of fluid, or dysuria. Feeling well, no complaints. Size equal to dates. 26 lbs TWG. PTL/preeclampsia precautions reviewed. RTC in 2 weeks or sooner if needed. Sara Mcleod APRN.CNM documented in this encounter [facility] 12-21-2022 Instructions Stef Mahan Alana - 12/21/2022 8:02 AM EST SEQUENTIAL SCREENINGS The [facility] offers sequential screenings for women who are interested in screenings for chromosomal abnormalities and certain defects during a . The sequential screen combines ultrasound and blood tests to determine the risk of chromosomal abnormalities, including Down's Syndrome (Trisomy 21) and Trisomy 18, as well as open neural tube defects including spina bifida. Ultrasound examination is performed between 11 weeks and 13 weeks gestational age. Blood tests are drawn after the ultrasound and again later in the between 15 and 21 weeks gestational age. Please let your physician know if you are interested in this testing. It will require an appointment with our fingerprint technician. This is not an ultrasound performed by a physician in our office during a routine visit. SIGNS AND SYMPTOMS OF LABOR 1. Contractions every 10 minutes or more often 2. Clear, pink, or brownish fluid (water) leaking from vagina 3. Feeling that baby is pushing down, pressure 4. Low, dull backache 5. Cramps that feel like a period 6. Cramps with or without diarrhea If you notice any of the above symptoms, contact our office at [phone] and ask to speak with a nurse. After hours, you can call doctors registry at [phone] OR call [facility] at [phone] and ask to have the doctor epic beacon analyst paged. If you consider this an emergency, dial 9--1 or go to your nearest emergency department. NEED HELP? Are you dealing with a violent or abusive relationship? Are you a victim of rape or sexual assult? Call [facility] ([place]) 24 hour Crisis Hotline: 470.279.4159 or 316-567-2569. MANUAL Your Guide to a Healthy manual is now on-line. Visit [email or web address] to download your free copy documented in this encounter [facility] 2022 Miscellaneous Notes Ramonita would like to move her c/s to 12 at noon if that is open. I am not sure if I left Pita a note regarding this. Can you make sure she knows about this request. If/when it is changed please let Ann know. Thanks. Valerie Rdz MD documented in this encounter [facility] 12-07-2022 Miscellaneous Notes RR- no VB/LOF. Good FM. Intermittent pelvic pain. Taking PNV. F/u in 2 weeks or prn. Valerie Rdz MD documented in this encounter [facility] 12-07-2022 Instructions Mariama Beck Ma - 12/07/2022 9:41 AM EST SEQUENTIAL SCREENINGS The [facility] offers sequential screenings for women who are interested in screenings for chromosomal abnormalities and certain defects during a . The sequential screen combines ultrasound and blood tests to determine the risk of chromosomal abnormalities, including Down's Syndrome (Trisomy 21) and Trisomy 18, as well as open neural tube defects including spina bifida. Ultrasound examination is performed between 11 weeks and 13 weeks gestational age. Blood tests are drawn after the ultrasound and again later in the between 15 and 21 weeks gestational age. Please let your physician know if you are interested in this testing. It will require an appointment with our fingerprint technician. This is not an ultrasound performed by a physician in our office during a routine visit. SIGNS AND SYMPTOMS OF LABOR 1. Contractions every 10 minutes or more often 2. Clear, pink, or brownish fluid (water) leaking from vagina 3. Feeling that baby is pushing down, pressure 4. Low, dull backache 5. Cramps that feel like a period 6. Cramps with or without diarrhea If you notice any of the above symptoms, contact our office at [phone] and ask to speak with a nurse. After hours, you can call doctors registry at [phone] OR call [facility] at [phone] and ask to have the doctor epic beacon analyst paged. If you consider this an emergency, dial 91-3 or go to your nearest emergency department. NEED HELP? Are you dealing with a violent or abusive relationship? Are you a victim of rape or sexual assult? Call [facility] ([place]) 24 hour Crisis Hotline: 930.508.5588 or 581-579-4535. MANUAL Your Guide to a Healthy manual is now on-line. Visit [email or web address] to download your free copy documented in this encounter [facility] 11-16-2022 Note HNO ID: [id number] Author: Stef Mahan Ma Service: ? Author Type: ? Type: Progress Notes Filed: 11/16/2022 9:08 AM Note Text: Patient identified by name and date of . Ann Ciaran Rebollar presents today for a vaccination of Tdap. Patient denies an allergy to latex: yes Patient denies a severe (life-threatening) allergy to a previous dose of Tdap, DTP, DTaP, DT or Td vaccine. Yes Patient denies history of epilepsy or neurological problems: Yes Patient is afebrile and denies being moderately or severely ill: Yes Patient denies history of Guillain-[place] Syndrome (a severe paralytic illness): Yes Tdap Adacel injection was given without incident. See immunizations for details of immunizations administered today. VIS sheet provided: Yes Provider Dr Rdz was present in office at time of injection. Stef Mahan Ma [facility] 11-16-2022 Miscellaneous Notes RR_ No VB/LOF. Good FM. No regular ctxs. Some indigestion and bloating. Declines LARC. BP stable. 28 week labs and tdap today. Plans repeat c/s. F/u in 2-3 weeks or prn. Valerie Rdz MD documented in this encounter [facility] 11-16-2022 History of Presen t illness Narrative Patient identified by name and date of . Ann Rebollar presents today for a vaccination of Tdap. Patient denies an allergy to latex: yes Patient denies a severe (life-threatening) allergy to a previous dose of Tdap, DTP, DTaP, DT or Td vaccine. Yes Patient denies history of epilepsy or neurological problems: Yes Patient is afebrile and denies being moderately or severely ill: Yes Patient denies history of Guillain-[place] Syndrome (a severe paralytic illness): Yes Tdap Adacel injection was given without incident. See immunizations for details of immunizations administered today. VIS sheet provided: Yes Provider Dr Rdz was present in office at time of injection. Stef Mahan Ma documented in this encounter [facility] 11-16-2022 Instructions Stef Mahan Ma - 11/16/2022 8:04 AM EST SEQUENTIAL SCREENINGS The [facility] offers sequential screenings for women who are interested in screenings for chromosomal abnormalities and certain defects during a . The sequential screen combines ultrasound and blood tests to determine the risk of chromosomal abnormalities, including Down's Syndrome (Trisomy 21) and Trisomy 18, as well as open neural tube defects including spina bifida. Ultrasound examination is performed between 11 weeks and 13 weeks gestational age. Blood tests are drawn after the ultrasound and again later in the between 15 and 21 weeks gestational age. Please let your physician know if you are interested in this testing. It will require an appointment with our fingerprint technician. This is not an ultrasound performed by a physician in our office during a routine visit. SIGNS AND SYMPTOMS OF LABOR 1. Contractions every 10 minutes or more often 2. Clear, pink, or brownish fluid (water) leaking from vagina 3. Feeling that baby is pushing down, pressure 4. Low, dull backache 5. Cramps that feel like a period 6. Cramps with or without diarrhea If you notice any of the above symptoms, contact our office at [phone] and ask to speak with a nurse. After hours, you can call doctors registry at [phone] OR call [facility] at [phone] and ask to have the doctor epic beacon analyst paged. If you consider this an emergency, dial 9-2 or go to your nearest emergency department. NEED HELP? Are you dealing with a violent or abusive relationship? Are you a victim of rape or sexual assult? Call [facility] ([place]) 24 hour Crisis Hotline: 137.726.3496 or 410-512-0008. MANUAL Your Guide to a Healthy manual is now on-line. Visit [email or web address] to download your free copy documented in this encounter [facility] 10-19-2022 Miscellaneous Notes RR- No VB/LOF. Good FM. Had COVID on 10/03 and now started w/ increased sinus pressure. Persistent cough. Will give zpack for sinusitis. F/u in 4 weeks. Plans repeat c/s unless would go into labor before c/s scheduled. F/u in 4 weeks. 28 week labs next visit. Valerie Rdz MD documented in this encounter [facility] 10-19-2022 Instructions Stef Mahan Ma - 10/19/2022 8:50 AM EST SEQUENTIAL SCREENINGS The [facility] offers sequential screenings for women who are interested in screenings for chromosomal abnormalities and certain defects during a . The sequential screen combines ultrasound and blood tests to determine the risk of chromosomal abnormalities, including Down's Syndrome (Trisomy 21) and Trisomy 18, as well as open neural tube defects including spina bifida. Ultrasound examination is performed between 11 weeks and 13 weeks gestational age. Blood tests are drawn after the ultrasound and again later in the between 15 and 21 weeks gestational age. Please let your physician know if you are interested in this testing. It will require an appointment with our fingerprint technician. This is not an ultrasound performed by a physician in our office during a routine visit. SIGNS AND SYMPTOMS OF LABOR 1. Contractions every 10 minutes or more often 2. Clear, pink, or brownish fluid (water) leaking from vagina 3. Feeling that baby is pushing down, pressure 4. Low, dull backache 5. Cramps that feel like a period 6. Cramps with or without diarrhea If you notice any of the above symptoms, contact our office at [phone] and ask to speak with a nurse. After hours, you can call doctors registry at [phone] OR call [facility] at [phone] and ask to have the doctor epic beacon analyst paged. If you consider this an emergency, dial 06-30-0 or go to your nearest emergency department. NEED HELP? Are you dealing with a violent or abusive relationship? Are you a victim of rape or sexual assult? Call [facility] ([place]) 24 hour Crisis Hotline: 961.133.1943 or 344-864-1627. MANUAL Your Guide to a Healthy manual is now on-line. Visit [email or web address] to download your free copy documented in this encounter [facility] 10-04-2022 Miscellaneous Notes 20w6d Called and spoke with patient. COVID symptoms began on Monday with a sore throat. Took x2 positive at home tests yesterday. Body aches, chills, slight cough, SIMPSON, congestion, sore throat. Patient asking what vitamins she can take. Discussed Vitamin D, Vitamin C, and Zinc but would clarify with provider the dosage recommendations. Asking if she can continue to drink Green tea. Carrol Santoyo RN documented in this encounter [facility] 09-21-2022 Miscellaneous Notes Anatomy ultrasound reviewed. No abnormalities identified. Follow up as clinically indicated. Please place copy in ob chart. Valerie Rdz MD documented in this encounter [facility] 09-21-2022 Miscellaneous Notes RR_ No VB/LOF. Plans gender reveal. Anatomy US today. Results pending. F/u in 4 weeks or prn. COnt. PNV. Valerie Rdz MD documented in this encounter [facility] 09-21-2022 Instructions Blanquita Fontenot MA - 09/21/2022 9:59 AM EST SEQUENTIAL SCREENINGS The [facility] offers sequential screenings for women who are interested in screenings for chromosomal abnormalities and certain defects during a . The sequential screen combines ultrasound and blood tests to determine the risk of chromosomal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 GBS positive Encounter for supervision of normal first in second trimester 03/11/2020 06/15/2020 documented as of this encounter (statuses as of 08/03/2022) [address]29-2020 History of Past illness Narrative* Problem Noted Date Resolved Date Group beta Strep positive 05/27/20202019 Overview: 05/27/20- GBS positive Encounter for supervision of normal first in second trimester 03/11/2020 06/15/2020 documented as of this encounter (statuses as of 08/16/2022) [address]29-2020 History of Past illness Narrative* Problem Noted Date Resolved Date Group beta Strep positive 05/27/20202019 Overview: 05/27/20- GBS positive Encounter for supervision of normal first in second trimester 03/11/2020 06/15/2020 documented as of this encounter (statuses as of 08/22/2022) [address]29-2020 History of Past illness Narrative* Problem Noted Date Resolved Date Group beta Strep positive 05/27/20202019 Overview: 05/27/20- GBS positive Encounter for supervision of normal first in second trimester 03/11/2020 06/15/2020 documented as of this encounter (statuses as of 09/06/2022) [address]29-2020 History of Past illness Narrative* Problem Noted Date Resolved Date Group beta Strep positive 05/27/20202019 Overview: 05/27/20- GBS positive Encounter for supervision of normal first in second trimester 03/11/2020 06/15/2020 documented as of this encounter (statuses as of 09/16/2022) [address]29-2020 History of Past illness Narrative* Problem Noted Date Resolved Date Group beta Strep positive 05/27/20202019 Overview: 05/27/20- GBS positive Encounter for supervision of normal first in second trimester 03/11/2020 06/15/2020 documented as of this encounter (statuses as of 09/21/2022) [address]29-2020 History of Past illness Narrative* Problem Noted Date Resolved Date Group beta Strep positive 05/27/20202019 Overview: 05/27/20- GBS positive Encounter for supervision of normal first in second trimester 03/11/2020 06/15/2020 documented as of this encounter (statuses as of 09/21/2022) [address]29-2020 History of Past illness Narrative* Problem Noted Date Resolved Date Group beta Strep positive 05/27/20202019 Overview: 05/27/20- GBS positive Encounter for supervision of normal first in second trimester 03/11/2020 06/15/2020 documented as of this encounter (statuses as of 10/04/2022) [address]29-2020 History of Past illness Narrative* Problem Noted Date Resolved Date Group beta Strep positive 05/27/20202019 Overview: 05/27/20- GBS positive Encounter for supervision of normal first in second trimester 03/11/2020 06/15/2020 documented as of this encounter (statuses as of 10/19/2022) [address]29-2020 History of Past illness Narrative* Problem Noted Date Resolved Date Group beta Strep positive 05/27/20202019 Overview: 05/27/20- GBS positive Encounter for supervision of normal first in second trimester 03/11/2020 06/15/2020 documented as of this encounter (statuses as of 11/16/2022) [address]29-2020 History of Past illness Narrative* Problem Noted Date Resolved Date Group beta Strep positive 05/27/20202019 Overview: 05/27/20- GBS positive Encounter for supervision of normal first in second trimester 03/11/2020 06/15/2020 documented as of this encounter (statuses as of 12/07/2022) [address]29-2020 History of Past illness Narrative* Problem Noted Date Resolved Date Group beta Strep positive 05/27/20202019 Overview: 05/27/20- GBS positive Encounter for supervision of normal first in second trimester 03/11/2020 06/15/2020 documented as of this encounter (statuses as of 2022) [address]29-2020 History of Past illness Narrative* Problem Noted Date Resolved Date Group beta Strep positive 05/27/20202019 Overview: 05/27/20- GBS positive Encounter for supervision of normal first in second trimester 03/11/2020 06/15/2020 documented as of this encounter (statuses as of 12/21/2022) [address]29-2020 History of Past illness Narrative* Problem Noted Date Resolved Date Group beta Strep positive 05/27/20202019 Overview: 05/27/20- GBS positive Encounter for supervision of normal first in second trimester 03/11/2020 06/15/2020 documented as of this encounter (statuses as of 01/04/2023) [address]29-2020 History of Past illness Narrative* Problem Noted Date Resolved Date Group beta Strep positive 05/27/20202019 Overview: 05/27/20- GBS positive Encounter for supervision of normal first in second trimester 03/11/2020 06/15/2020 documented as of this encounter (statuses as of 01/18/2023) [address]29-2020 History of Past illness Narrative* Problem Noted Date Resolved Date Group beta Strep positive 05/27/20202019 Overview: 05/27/20- GBS positive Encounter for supervision of normal first in second trimester 03/11/2020 06/15/2020 documented as of this encounter (statuses as of 01/18/2023) [address]29-2020 History of Past illness Narrative* Problem Noted Date Resolved Date Group beta Strep positive 05/27/20202019 Overview: 05/27/20- GBS positive Encounter for supervision of normal first in second trimester 03/11/2020 06/15/2020 documented as of this encounter (statuses as of 01/25/2023) [facility] of Past illness Narrative* Problem Noted Date Resolved Date Group beta Strep positive 05/27/20202019 Overview: 05/27/20- GBS positive Encounter for supervision of normal first in second trimester 03/11/2020 06/15/2020 documented as of this encounter (statuses as of 02/01/2023) [facility] of Past illness Narrative* Problem Noted Date Resolved Date Group beta Strep positive 05/27/20202019 Overview: 05/27/20- GBS positive Encounter for supervision of normal first in second trimester 03/11/2020 06/15/2020 documented as of this encounter (statuses as of 02/01/2023) [facility] of Past illness Narrative* Problem Noted Date Resolved Date Group beta Strep positive 05/27/20202019 Overview: 05/27/20- GBS positive Encounter for supervision of normal first in second trimester 03/11/2020 06/15/2020 documented as of this encounter (statuses as of 02/09/2023) [facility] Diagnosis with history of section, antepartum- Primary Hx of pre-eclampsia, prior , currently Obesity in Obesity complicating , childbirth, or the puerperium, unspecified as to episode of care or not applicable History of anxiety Personal history of other mental disorder Patient request for diagnostic testing Other specified examination documented in this encounter [facility]* Diagnosis with history of section, antepartum- Primary Hx of pre-eclampsia, prior , currently documented in this encounter [facility]* Diagnosis Encounter for (NT) nuchal translucency scan- Primary Other specified screening 12 weeks gestation of state, incidental documented in this encounter [facility]* Diagnosis Encounter for screening of mother- Primary Unspecified screening 12 weeks gestation of state, incidental documented in this encounter [facility]* Diagnosis Encounter for supervision of other normal in second trimester- Primary 14 weeks gestation of state, incidental Need for influenza vaccination Need for prophylactic vaccination and inoculation against influenza documented in this encounter [facility]* Diagnosis 16 weeks gestation of - Primary state, incidental documented in this encounter [facility]* Diagnosis 19 weeks gestation of - Primary state, incidental Encounter for supervision of other normal in second trimester documented in this encounter [facility]* Diagnosis Encounter for anatomic survey- Primary 19 weeks gestation of state, incidental Obesity complicating , second trimester documented in this encounter [facility]* Diagnosis 23 weeks gestation of - Primary state, incidental Encounter for supervision of other normal in second trimester documented in this encounter [facility]* Diagnosis Encounter for supervision of other normal in second trimester- Primary 27 weeks gestation of state, incidental Need for vaccination Need for prophylactic vaccination and inoculation against unspecified single disease documented in this encounter [facility]* Diagnosis 30 weeks gestation of - Primary state, incidental Encounter for supervision of other normal in third trimester documented in this encounter [facility]* Diagnosis 32 weeks gestation of - Primary state, incidental Encounter for supervision of other normal in third trimester documented in this encounter [facility]* Diagnosis 34 weeks gestation of - Primary state, incidental Encounter for supervision of other normal in third trimester documented in this encounter [facility]* Diagnosis Encounter for supervision of other normal in third trimester- Primary 36 weeks gestation of state, incidental documented in this encounter [facility]* Diagnosis Encounter for supervision of other normal in third trimester- Primary 37 weeks gestation of state, incidental documented in this encounter [facility]* Diagnosis 38 weeks gestation of - Primary state, incidental Encounter for supervision of other normal in third trimester documented in this encounter [facility]* Diagnosis Status post section routine follow-up- Primary Routine follow-up documented in this encounter [facility] for referral (narrative)* Diagnostic Procedure Only (Routine) - Authorized Specialty Diagnoses / Procedures Referred By Contac t Referred To Contact [facility] Diagnoses with history of section, antepartum Hx of pre-eclampsia, prior , currently Procedures NUCHAL TRANSLUCENCY WHI US NUCHAL TRANSLUCENCY 1ST GESTATION Valerie Rdz MD [address] [place] [address] [facility] [address] [place] [address] Referral ID Status Reason Start Date Expiration Date Visits Requested Visits Authorized [id number] Authorized Auto-Generat ed Referral 07/18/2022 07/18/2023 1 1 [facility] for referral (narrative)* Diagnostic Procedure Only (Routine) - Pending Review Specialty Diagnoses / Procedures Referred By Contac t Referred To Contact [facility] Diagnoses Encounter for supervision of other normal in second trimester Procedures OBSTETRIC ULTRASOUND WHI US PREG UTERUS AFTER 1ST TRIMEST 1/ GESTATION Valerie Rdz MD [address] [place] [address] [facility] [address] [place] [address] Referral ID Status Reason Start Date Expiration Date Visits Requested Visits Authorized [id number] Pending Review Auto-Generat ed Referral 2 08/22/2023 1 1 [facility] Concerns Problem Noted Date OB Reminders 07/18/2022 Problem Noted Date OB Reminders 07/18/2022 Problem Noted Date OB Reminders 07/18/2022 Problem Noted Date OB Reminders 07/18/2022 Problem Noted Date OB Reminders 07/18/2022 Problem Noted Date OB Reminders 07/18/2022 Problem Noted Date OB Reminders 07/18/2022 Problem Noted Date OB Reminders 07/18/2022 Problem Noted Date OB Reminders 07/18/2022 Problem Noted Date OB Reminders 07/18/2022 Problem Noted Date OB Reminders 07/18/2022 Problem Noted Date OB Reminders 07/18/2022 Problem Noted Date OB Reminders 07/18/2022 Problem Noted Date Diagnosed Date OB Reminders 07/18/2022 Summary Purpose Family History No Family History Records Found Advance Directives No Advanced Directives Records Found Additional Source Comments Source Comments (unrecognize d section and content) In the event this informatio n is protected by the Federal Confidentiality of Alcohol and Drug Abuse Patient Records regulations: The Federal rules restrict any use of the information to criminally investigate or prosecute any alcohol or drug abuse patient.[facility] HospitalIn the event this information is protected by the Federal Confidentiality of Alcohol and Drug Abuse Patient Records regulations: The Federal rules restrict any use of the information to criminally investigate or prosecute any alcohol or drug abuse patient.[facility] HospitalIn the event this information is protected by the Federal Confidentiality of Alcohol and Drug Abuse Patient Records regulations: The Federal rules restrict any use of the information to criminally investigate or prosecute any alcohol or drug abuse patient.[facility] HospitalIn the event this information is protected by the Federal Confidentiality of Alcohol and Drug Abuse Patient Records regulations: The Federal rules restrict any use of the information to criminally investigate or prosecute any alcohol or drug abuse patient.[facility] HospitalIn the event this information is protected by the Federal Confidentiality of Alcohol and Drug Abuse Patient Records regulations: The Federal rules restrict any use of the information to criminally investigate or prosecute any alcohol or drug abuse patient.[facility] HospitalIn the event this information is protected by the Federal Confidentiality of Alcohol and Drug Abuse Patient Records regulations: The Federal rules restrict any use of the information to criminally investigate or prosecute any alcohol or drug abuse patient.[facility] HospitalIn the event this information is protected by the Federal Confidentiality of Alcohol and Drug Abuse Patient Records regulations: The Federal rules restrict any use of the information to criminally investigate or prosecute any alcohol or drug abuse patient.[facility] HospitalIn the event this information is protected by the Federal Confidentiality of Alcohol and Drug Abuse Patient Records regulations: The Federal rules restrict any use of the information to criminally investigate or prosecute any alcohol or drug abuse patient.[facility] HospitalIn the event this information is protected by the Federal Confidentiality of Alcohol and Drug Abuse Patient Records regulations: The Federal rules restrict any use of the information to criminally investigate or prosecute any alcohol or drug abuse patient.[facility] HospitalIn the event this information is protected by the Federal Confidentiality of Alcohol and Drug Abuse Patient Records regulations: The Federal rules restrict any use of the information to criminally investigate or prosecute any alcohol or drug abuse patient.[facility] HospitalIn the event this information is protected by the Federal Confidentiality of Alcohol and Drug Abuse Patient Records regulations: The Federal rules restrict any use of the information to criminally investigate or prosecute any alcohol or drug abuse patient.[facility] HospitalIn the event this information is protected by the Federal Confidentiality of Alcohol and Drug Abuse Patient Records regulations: The Federal rules restrict any use of the information to criminally investigate or prosecute any alcohol or drug abuse patient.[facility] HospitalIn the event this information is protected by the Federal Confidentiality of Alcohol and Drug Abuse Patient Records regulations: The Federal rules restrict any use of the information to criminally investigate or prosecute any alcohol or drug abuse patient.[facility] HospitalIn the event this information is protected by the Federal Confidentiality of Alcohol and Drug Abuse Patient Records regulations: The Federal rules restrict any use of the information to criminally investigate or prosecute any alcohol or drug abuse patient.[facility] HospitalIn the event this information is protected by the Federal Confidentiality of Alcohol and Drug Abuse Patient Records regulations: The Federal rules restrict any use of the information to criminally investigate or prosecute any alcohol or drug abuse patient.[facility] HospitalIn the event this information is protected by the Federal Confidentiality of Alcohol and Drug Abuse Patient Records regulations: The Federal rules restrict any use of the information to criminally investigate or prosecute any alcohol or drug abuse patient.[facility] HospitalIn the event this information is protected by the Federal Confidentiality of Alcohol and Drug Abuse Patient Records regulations: The Federal rules restrict any use of the information to criminally investigate or prosecute any alcohol or drug abuse patient.[facility] HospitalIn the event this information is protected by the Federal Confidentiality of Alcohol and Drug Abuse Patient Records regulations: The Federal rules restrict any use of the information to criminally investigate or prosecute any alcohol or drug abuse patient.[facility] HospitalIn the event this information is protected by the Federal Confidentiality of Alcohol and Drug Abuse Patient Records regulations: The Federal rules restrict any use of the information to criminally investigate or prosecute any alcohol or drug abuse patient.[facility] HospitalIn the event this information is protected by the Federal Confidentiality of Alcohol and Drug Abuse Patient Records regulations: The Federal rules restrict any use of the information to criminally investigate or prosecute any alcohol or drug abuse patient.[facility] HospitalIn the event this information is protected by the Federal Confidentiality of Alcohol and Drug Abuse Patient Records regulations: The Federal rules restrict any use of the information to criminally investigate or prosecute any alcohol or drug abuse patient.[facility] HospitalIn the event this information is protected by the Federal Confidentiality of Alcohol and Drug Abuse Patient Records regulations: The Federal rules restrict any use of the information to criminally investigate or prosecute any alcohol or drug abuse patient.[facility] HospitalIn the event this information is protected by the Federal Confidentiality of Alcohol and Drug Abuse Patient Records regulations: The Federal rules restrict any use of the information to criminally investigate or prosecute any alcohol or drug abuse patient.[facility] HospitalIn the event this information is protected by the Federal Confidentiality of Alcohol and Drug Abuse Patient Records regulations: The Federal rules restrict any use of the information to criminally investigate or prosecute any alcohol or drug abuse patient.[facility] HospitalIn the event this information is protected by the Federal Confidentiality of Alcohol and Drug Abuse Patient Records regulations: The Federal rules restrict any use of the information to criminally investigate or prosecute any alcohol or drug abuse patient.[facility] HospitalIn the event this information is protected by the Federal Confidentiality of Alcohol and Drug Abuse Patient Records regulations: The Federal rules restrict any use of the information to criminally investigate or prosecute any alcohol or drug abuse patient.[facility] HospitalIn the event this information is protected by the Federal Confidentiality of Alcohol and Drug Abuse Patient Records regulations: The Federal rules restrict any use of the information to criminally investigate or prosecute any alcohol or drug abuse patient.[facility] HospitalIn the event this information is protected by the Federal Confidentiality of Alcohol and Drug Abuse Patient Records regulations: The Federal rules restrict any use of the information to criminally investigate or prosecute any alcohol or drug abuse patient.[facility] HospitalIn the event this information is protected by the Federal Confidentiality of Alcohol and Drug Abuse Patient Records regulations: The Federal rules restrict any use of the information to criminally investigate or prosecute any alcohol or drug abuse patient.[facility] Reason for Visit (unrecogniz ed section and content) Reason Comments Care Reason Comments Initial OB Visit Reason Comments [place] Specialty Diagnoses / Procedures Referred By Contac t Referred To Contact [facility] Diagnoses with history of section, antepartum Hx of pre-eclampsia, prior , currently Procedures NUCHAL TRANSLUCENCY WHI US NUCHAL TRANSLUCENCY 1ST GESTATION Valerie Rdz MD [address] [place] [address] [facility] [address] [place] [address] Referral ID Status Reason Start Date Expiration Date V isits Requested Visits Authorized [id number] Closed Auto-Generate d Referral 07/18/2022 07/18/2023 1 1 Reason Comments Orders Reason Onset Date Comments Care 08/22/2022 Immunizations 08/22/2022 Flu vaccination Reason Onset Date Comments Care 09/21/2022 Specialty Diagnoses / Procedures Referred By Contac t Referred To Contact [facility] Diagnoses Encounter for supervision of other normal in second trimester Procedures OBSTETRIC ULTRASOUND WHI US PREG UTERUS AFTER 1ST TRIMEST GESTATION Valerie Rdz MD [address] [place] [address] [facility] [address] [place] [address] Referral ID Status Reason Start Date Expiration Date Visits Requested Visits Authorized [id number] Authorized Auto-Generat ed Referral 10/30/2021 10/29/2022 20 20 Reason Onset Date Comments Care 10/19/2022 Reason Onset Date Comments Care 11/16/2022 Reason Onset Date Comments Care 12/07/2022 Reason Onset Date Comments Care 12/21/2022 Reason Onset Date Comments Care 01/04/2023 Reason Onset Date Comments Care 01/18/2023 Reason Onset Date Comments Care 01/25/2023 Reason Comments Question (OB Question) Reason Onset Date Comments Care 02/01/2023 Reason Comments Ob Delivery Note Reason Comments Early Reason Comments Forms/letter Reason Onset Date Comments Refill Request 09/04/2023 INFORMATION SOURCE (unrecogn ized section and content) FOR RECORDS PERTAINING TO PATIENTS WHO ARE OR HAVE BEEN ENROLLED IN A CHEMICAL DEPENDENCY/SUBSTANCEABUSE PROGRAM, SOME INFORMATION MAY BE OMITTED. This clinical summary was aggregated from multiple sources. Caution should be exercised in using it in the provision of clinical care. This summary normalizes information from multiple sources, and as a consequence, information in this document may materially change the coding, format and clinical context of patient data. In addition, data may be omitted in some cases. CLINICAL DECISIONS SHOULD BE BASED ON THE PRIMARY CLINICAL RECORDS. [facility]. provides no warranty or guarantee of the accuracy or completeness of information in this document.
[2023-11-08 16:09] LABS: CRP 2.96 mg/L (0.0-3.0)
[2023-11-10 15:08] LABS: Endomysial Antibody IgA Negative (Negative); Immunoglobulin A 245 mg/dL (87-352); t-Transglutaminase IgA <2 U/mL (0-3)
== END | disposition home or self-care (01) ==
PROVIDERS: PCP Family Medicine; Referring Provider Internal Medicine Gastroenterology; Visit Provider Internal Medicine Gastroenterology
DX: R19.7 Diarrhea, unspecified (principal)
CPT/HCPCS: 36415; 82784; 83516; 86140; 86255

== ENCOUNTER → 2025-02-19 | Outpatient (CLI) | payer OTHER, SELFPAY ==
[2025-02-20 07:54] LABS: ALB/GLOB Ratio 1.5 RATIO (0.9-2.4); AST(SGOT) 15 U/L (<=31); Alanine Aminotransfer ALT/SGPT 19 U/L (<=34); Albumin, Serum 4.3 g/dL (3.5-5.0); Alkaline Phosphatase 69 U/L (35-104); Anion Gap 14 (5-15); BUN 19 mg/dL (4-19); BUN/Creat Ratio 23.4 RATIO (10-20); Calcium,Total 9.3 mg/dL (7.6-11.0); Carbon Dioxide 19.5 mmol/L (21.0-32.0); Chloride 103 mmol/L (98-108); Creatinine, Serum 0.83 mg/dL (0.70-1.20); EST Glomerular Filtration Rate 95 (>60); Globulin 2.9 g/dL (2.2-4.2); Glucose 92 mg/dL (70-99); Potassium 4.5 mmol/L (3.3-5.1); Protein, Total 7.1 g/dL (5.9-8.4); Sodium Level 137 mmol/L (133-145); Total Bilirubin 0.26 mg/dL (0.00-1.30); Vitamin D,25 Hydroxy 45.3 ng/mL (30-100)
== END | disposition home or self-care (01) ==
LOC: LAB 10:08
PROVIDERS: PCP Family Medicine; Referring Provider Family Medicine; Visit Provider Family Medicine
DX: Z00.00 Encounter for general adult medical examination without abnormal findings (principal); Z13.220 Encounter for screening for lipoid disorders; Z13.1 Encounter for screening for diabetes mellitus
CPT/HCPCS: 36415; 80053; 82306

== ENCOUNTER → 2025-09-15 | Outpatient (CLI) | payer OTHER, SELFPAY ==
[2025-09-15 13:35] LABS: Hematocrit 37.7 % (37-47); Hemoglobin 13.2 g/dL (12.0-15.0); Immature Granulocytes Count 0.040 X10^3/uL (0.0-0.0); Mean Corp Hgb Conc 35.0 g/dL (32-36); Mean Corpuscular Volume 83.4 fL (81-99); Mean Platelet Vol. 9.0 fl (6.2-12.0); NRBC Flagged by Analyzer 0 % (0-5); Platelet Count 229 K/mm3 (150-450); RBC Distribution Width CV 12.8 % (11.6-14.6); RBC Distribution Width SD 38.7 fl (35.1-43.9); Red Blood Count 4.52 M/mm3 (4.2-5.4); White Blood Count 7.7 K/mm3 (4.4-11.0)
[2025-09-15 14:23] LABS: Ferritin 58 ng/mL (22-378); HIV Nonreactive (Nonreactive); Hepatitis B Surface Antigen Nonreactive (Nonreactive); Hepatitis C Antibody Nonreactive (Nonreactive); Iron 97 ug/dL (50-170); Iron Binding Capacity,Total 359 ug/dL (250-450); Iron Binding Capacity,Unsat 262 ug/dL (228-428); Syphilis Antibodies Nonreactive (Nonreactive)
== END | disposition home or self-care (01) ==
LOC: LAB 13:15
PROVIDERS: PCP Family Medicine; Referring Provider Nurse Practitioner Family; Visit Provider Nurse Practitioner Family
DX: Z34.90 Encounter for supervision of normal pregnancy, unspecified, unspecified trimester (principal); Z11.3 Encounter for screening for infections with a predominantly sexual mode of transmission; Z3A.01 Less than 8 weeks gestation of pregnancy
CPT/HCPCS: 36415; 82728; 83036; 83540; 83550; 85025; 86703; 86762; 86780; 86803; 86850; 86900; 86901; 87340